=== PATIENT | female | born 1955 | race Caucasian/White ===

== ENCOUNTER 2022-10-27 09:38 | Day surgery (SDC) | payer MEDICARE, MEDICAID, SELFPAY ==
--- NOTE | 2022-10-20 15:24 | NURSING ---
DURING PAT PHONE INTERVIEW, PT INSTRUCTED TO PHONE KEISHA'S OFFICE TO INFORM THEM OF CONGESTION AND COUGH.
[2022-10-23 09:35] LABS: Hematocrit 44.3 % (37-47); Hemoglobin 14.3 g/dL (12.0-15.0); Mean Corp Hgb Conc 32.3 g/dL (32-36); Mean Corpuscular Hgb 30.4 pg (27.0-32.0); Mean Corpuscular Volume 94.3 fL (81-99); Mean Platelet Vol. 9.2 fl (6.2-12.0); Platelet Count 269 K/mm3 (150-450); RBC Distribution Width CV 13.6 % (11.6-14.6); RBC Distribution Width SD 47.5 fl (35.1-43.9); White Blood Count 5.3 K/mm3 (4.4-11.0)
[2022-10-23 10:08] LABS: Anion Gap 7 (5-15); BUN 11 mg/dL (7-18); BUN/Creat Ratio 14.2 RATIO (10-20); Calcium,Total 8.8 mg/dL (8.5-10.1); Chloride 109 mmol/L (98-107); Creatinine, Serum 0.78 mg/dL (0.55-1.02); EST Glomerular Filtration Rate 79 mL/min (>60); Est Glom Filt Rate - Afr Amer 95 mL/min (>60); Glucose 103 mg/dL (74-106); Potassium 4.1 mmol/L (3.5-5.1); Sodium Level 143 mmol/L (136-145)
--- NOTE | 2022-10-27 | HERN_PTH ---
PATIENT: SACHIN CODY LOC: [facility] [place] U#:[id number] AGE/SX: 67/F ROOM: RE10/27/[address]: Dr. Gaston Ellis MD : 1955 BED: DIS: 10/27/2022 SPEC #: [id number] RECD: 10/27/22 13:37 STATUS: IAN REAmanda #: [id number] MARICRUZ: 10/27/22 00:[address]: Gaston Ellis DEPT: SURGICAL PATHOLOGY RECD BY: Lorenzo Gar ENTERED: 10/30/22 09:34 SP TYPE: Hernia OTHR DR: Ginny Jackson, SANDRA Tissues: HERNIA Procedures: Surgery Specimen Level II HEADER OPERATION: Laparoscopic / hybrid ventral hernia with mesh PRE-OP DIAGNOSIS: Ventral incisional hernia TISSUE SUBMITTED: Hernia sac MICROSCOPIC DIAGNOSIS Hernia sac, herniorrhaphy: Hernia sac with fibrosis. AM:jonah 10/31/2022 MICROSCOPIC DESCRIPTION Slides are reviewed. GROSS DESCRIPTION Received in fixative is one container labeled with the patient's name and designated hernia sac. The specimen consists of an irregular piece of yellow adipose tissue measuring 7.5 x 4.0 x 2.5 cm. Sections do not reveal any mass lesion. Precision Dyer sections are submitted in one cassette. / SJ:rg 10/30/2022 TC:5 CPT: 66104
[2022-10-27 10:07] VITALS: BP 134/53; PULSE 82; RESP 18; TEMP 37.1; O2SAT 95; BMI 30.8
[2022-10-27] MEDS: Lactated Ringers 1,000 ML 15 ML IV (10:42)
--- NOTE | 2022-10-27 11:25 | HP.PCM_ITS ---
History and Physical Date of Admission: 10/27/22 Intake Vital Signs 10/06/2312:20 Height 5 ft 3 in Weight: 176 lb 6 oz BMI 31.2 BP 153/80 H Blood Pressure Location Lt brachial Position Sitting Respiration 17 Pulse 71 Pulse Source Monitor Temp 97.4 F L Temp Source Temporal Pulse Oximetry (%) 95 Oxygen Delivery Method room air Intake Visit Reasons: Hernia Chief Complaint: hernia Allergies aspirin Allergy (Intermediate, Verified 10/06/22 13:24) Otherciprofloxacin [From Cipro] Allergy (Intermediate, Verified 10/06/22 13:24) Hivescodeine Allergy (Intermediate, Verified 10/06/22 13:24) Othernaproxen Allergy (Intermediate, Verified 10/06/22 13:24) Rashsoy Allergy (Intermediate, Verified 10/06/22 13:24) Rash Medications NK 10/06/22 [History Confirmed 10/06/22] PFSH Medical History (Updated 10/06/22 @ 14:[address] Gaston Ellis MD) Amputation of finger, right Surgical History (Updated 10/06/22 @ 13:18 by Kristal Reina) History of hysterectomy Hx of cholecystectomy Social History (Updated 10/06/22 @ 13:19 by Kristal Reina) Smoking Status: Current every day smoker tobacco type: cigarettes Smoking packs per day: 1.5 Smoking cigarettes per day: 30.0 alcohol intake: never substance use type: does not use HPI HPI HPI: Patient is a 67-year-old female with abdominal hernia. She had a history of laparoscopic cholecystectomy. At her umbilical site she is experiencing bulging and pain. ROS General General: Yes fatigue; No weight change, appetite, colon cancer, breast cancer or weakness HEENT HEENT: No difficulty swallowing, eye injury, eye surgery, swollen glands or hoarseness Endo Endocrine: No thyroid disease, diabetes mellitus, thyroid cancer, Hair loss, heat intolerance or cold intolerance Skin Skin: Yes changing moles; No rash Musc Musculoskeletal: Yes back problems, arthritis and rheumatoid arthritis; No gout or joint pain Cardio Cardiovascular: Yes murmur; No pacemaker, heart disease, atrial fibrillation, high blood pressure, heart attack, heart stent, palpitations, shortness of breat with exertion or chest pain Psych Psychiatric: Yes depression and anxiety; No hearing voices Resp Respiratory: No shortness of breath, No sleep apnea, Yes cough, No COPD, Yes asthma, No emphysema and No wheezing Gastro Gastrointestinal: Yes abdominal pain, No nausea or vomiting, No diarrhea, No constipation, No blood in stool, Yes acid reflux, No hemorrhoids, No ulcers, No gallbladder problem and No black,tarry stools Herson Hematologic: No blood thinners, No blood disorders, No bleeding, No anemia and No blood clots Neuro Neurologic: No system reviewed and no additional complaints, except as documented, No as per HPI, No abnormal gait, No abnormal hearing, No abnormal movements, No abnormal speech, No behavioral changes, No burning sensations, No confusion, No convulsions, No disequilibrium, No dizziness, No localized weakness, No frequent falls, No headache(s), No lack of coordination, No loss of vision, No memory loss, Yes numbness, No other visual disturbances, No radicular pain, No restless legs, No sensory deficit, No syncope, Yes tingling, No tremor(s), No weakness and No other Exam Const General: cooperative Orientation: alert and oriented x3 HENMT Head: normal to inspection Neck Neck: normal visual inspection and full ROM Chest Chest palpation & inspection: normal inspection of the chest Resp Effort & Inspection: normal respiratory effort Auscultation: clear to auscultation bilaterally Cardio Rate: regular rate Rhythm: regular rhythm GI Inspection: non-distended Palpation: soft, hernia ventral and nontender Skin General: no rashes or lesions noted Neuro General: patient alert and patient oriented x3 Extrem General: full ROM Psych Appearance: grossly normal Mental Status: mental status grossly normal Assessment and Plan Assessment and Plan (1) Ventral incisional hernia: Status: Acute Plan: Patient has a reducible hernia at her umbilical incision site for her laparoscopic cholecystectomy. I discussed laparoscopic hybrid approach to the hernia. I discussed mesh placement. I discussed the risks including not limited to bleeding, infection, injury to underlying organs such as the bowel. Patient understands the risks and is willing to proceed. Gaston Ellis MD Pager: [facility] [address] [place] [address], [address] [place] [address] Office: I have examined the patient and the H&P has been reviewed. There are no clinical changes since date of exam.
[2022-10-27] MEDS: Cefazolin 2 GM in 0.9% Normal Saline (100mL Bag) 100 ML IV (11:37)
[2022-10-27] MEDS: 0.9% Normal Saline (Pres. free 10 ML Vial (12:05)
[2022-10-27] MEDS: BUPIVACAINE LIPOSOME/PF 20 ML VIAL OPERA.SITE (12:05)
--- NOTE | 2022-10-27 12:41 | PCM.OPRPT ---
Report of Operation Date of Procedure: 10/27/22 Pre-Operative Diagnosis: Incisional ventral hernia, less than 3 cm Post-Operative Diagnosis: Same Surgery/Procedure Performed:: Laparoscopic ventral hernia repair with mesh Type of Anesthesia: General/Regional Specimen's removed: Hernia sac and contents Estimated Blood Loss (mL): 10 Description of Procedure: Patient was brought back to the operating room and general anesthesia was induced. The abdomen was prepped and draped in usual sterile fashion. Visiport technique was used to access the left upper quadrant with a 5 mm port. The abdomen was then insufflated to 15 mmHg. The patient had densely adherent fat to the anterior abdominal wall and the hernia. Under laparoscopic guidance a tap block was performed bilaterally. Under direct visualization an epigastric 5 mm port was placed as well as a left lateral 5 mm port. Using Enseal the adherent omentum was taken down. This appeared to leave only a small amount of fat in the hernia. Next an incision was made over the hernia sac. Using electrocautery the hernia sac was dissected free from the anterior aspect. It was amputated and removed and its contents were removed as well. Next through this incision the Ventralight mesh was rolled and placed into the abdomen. Next the hernia was reapproximated using interrupted 0 Nurolon sutures. The abdomen was reinsufflated and the echo positioning device was used to position the mesh in place. The mesh was then tacked circumferentially to the anterior abdominal wall. The balloon was removed and intact. The abdomen was then allowed to desufflate. The incisions were injected with local anesthetic and closed with interrupted 4-0 Monocryl suture. Steri-Strips and bandages were applied. Patient tolerated the procedure well. She was taken to PACU in stable condition Grafts/Implants Used: [address] mesh
--- NOTE | 2022-10-27 12:48 | EX.PCM.DISCH ---
Discharge Instructions Procedure Hernia Diet Discharge Diet: Light diet - advance as tolerated Activity Discharge Activity: May Not Drive (for 2-3 days or while taking narcotic pain meds.) and May Shower (with the bandage in place 1-2 days after surgery.) Lifting Restrictions: 20 pounds for 6 weeks. Additional Activity Instructions:: Climbing stairs is fine, walking is encouraged. Sitting in bed may be uncomfortable. Sitting up using your lateral muscles (sitting up sideways) is usually more comfortable. Do not drive, work heavy equipment of sign legal documents for 24 hours. Pain medications may cause nausea, you should typically eat light foods as you take your pain medications. Pain medications may also cause constipation. If you have difficulty with this, discuss with your doctor. Dressing / Incision Call your doctor if your incision/area has: Continuous Slow Oozing, Sudden Increased Bleeding, Increased Pain/ Swelling, Increased Redness and Foul Smelling Discharge Call your doctor if you observe: Fever of 101 or Higher Suture Line Care: Avoid Pulling/Pushing and Avoid Pinching/Bending Remove Dressing in: 2 days (Remove clear bandages in 2 days, remove Steri-Strips in 7 to 10 days.) Follow Up Care Please Follow Up With: Gaston Ellis MD When: Please call to schedule 2 week follow up appointment. [phone] Test Results: Test results from this visit will be discussed in further detail at your follow-up appointment, if applicable. Discharge Plan Admission Attending Provider: Gaston Ellis Primary Care Provider: Ginny Jackson NP Discharge Orders/Prescriptions Prescriptions: New oxycodone 5 mg tablet 5 - 10 mg PO Q6H PRN (Reason: pain) 5 Days Qty: 20 0RF No Action omeprazole 20 mg capsule,delayed release(DR/EC) 20 mg PO Q6H PRN (Reason: acid reflux) Patient Comments: TAKE 1 CAPSULE BY MOUTH EVERY DAY acetaminophen 325 mg capsule 325 mg PO Q6H PRN (Reason: pain) Other Ambulatory Orders: 12 Lead EKG (Routine) Timeframe: 20221023 Facility: [facility] - Location: Cardiovascular Services Ordered By: Dr. Toro Bowers Disposition Disposition (needs filled in before D/C Order can be placed): Home, Self Care
[2022-10-27 12:49] VITALS: BP 134/53; BP 172/77; PULSE 94; RESP 16; TEMP 37.2; O2SAT 93
[2022-10-27 12:59] VITALS: BP 134/53; BP 152/81; PULSE 89; RESP 16; O2SAT 93
[2022-10-27 13:19] VITALS: BP 134/53; BP 157/71; PULSE 71; RESP 16; TEMP 36.3; O2SAT 93
[2022-10-27 13:42] VITALS: BP 134/53
== END 2022-10-27 13:52 | disposition home or self-care (01) ==
LOC: SDC 09:43 → AC 09:43
PROVIDERS: Anesthesiology; PCP Nurse Practitioner Family; Referring Provider Surgery; Visit Provider Surgery
PROC: 0WQF4ZZ Repair Abdominal Wall, Percutaneous Endoscopic Approach (ICD-10-PCS; CPT 49591; principal; 2022-10-27 11:10)
DX: K43.2 Incisional hernia without obstruction or gangrene (principal); F17.210 Nicotine dependence, cigarettes, uncomplicated; Z90.49 Acquired absence of other specified parts of digestive tract; Z90.710 Acquired absence of both cervix and uterus
CPT/HCPCS: 49591; 00750; 36415; 80048; 85027; 88302; 93005; J7120; C1760; J2405; J3490

== ENCOUNTER → 2024-01-24 | Outpatient (CLI) | payer MEDICARE, MEDICAID, SELFPAY ==
--- NOTE | 2024-01-24 10:34 | BD_ITS ---
STUDY: DUAL ENERGY X-RAY ABSORPTIOMETRY / DXA REASON FOR EXAM: Female, 68 years old. Pain TECHNIQUE: Bone Mineral Density (BMD) measurements of lumbar spine and bilateral hips were obtained. COMPARISON: None. FINDINGS: Lumbar Spine (L1-L4): g/cm2 (0.834) / T-score (-1.8) / Z-score (0.2) Findings are suggestive of osteopenia with a moderate fracture risk. Left Femur Total: g/cm2 (0.867) / T-score (-0.6) / Z-score (0.8) Left Femoral Neck: g/cm2 (0.657) / T-score (-1.7) / Z-score (0.0) Right Femur Total: g/cm2 (0.868) / T-score (-0.6) / Z-score (0.8) Right Femoral Neck: g/cm2 (0.693) / T-score (-1.4) / Z-score (0.3) BD/Dexa Bone Density Study IMPRESSION: The patient is considered osteopenic as outlined below according to World Uri Organization (WHO) criteria with a moderate fracture risk. Reference Information: The T-score is the number of standard deviations above or below the standard which is normal for young adults at their peak bone mineral density. The World Health Organization (WHO) interprets the T-scores as follows: Above -1 Normal bone density Between -1 and -2.5 Osteopenia Equal to / or below -2.5 Osteoporosis As a practical clinical guideline, osteopenia may be graded as follows: Mild -1 through -1.5 Moderate -1.6 through -2.0 Severe -2.1 through -2.4 The Z-score is the number of standard deviations above or below age-matched controls. A Z-score of less than -1.5 would be considered abnormal. References: 1. NIH Osteoporosis and Related Bone Diseases www osteo.org 2. International Society for Clinical Densitometry www iscd.org 3. National Osteoporosis Foundation www nof.org Electronically Signed: Marcos Davies MD at 15:02 EST ,
== END | disposition home or self-care (01) ==
LOC: OPBD 10:32
PROVIDERS: PCP Nurse Practitioner Family; Referring Provider Student in an Organized Health Care Education/Training Program; Visit Provider Student in an Organized Health Care Education/Training Program
DX: M81.0 Age-related osteoporosis without current pathological fracture (principal)
CPT/HCPCS: 77080

== ENCOUNTER → 2024-03-17 | Outpatient (CLI) | payer MEDICARE, MEDICAID, SELFPAY | END | disposition home or self-care (01) | LOC: MRI 13:24 | PROVIDERS: PCP Nurse Practitioner Family; Referring Provider Student in an Organized Health Care Education/Training Program; Visit Provider Student in an Organized Health Care Education/Training Program | DX: Z00.00 Encounter for general adult medical examination without abnormal findings (principal) ==

== ENCOUNTER → 2024-04-02 | Outpatient (CLI) | payer MEDICARE, MEDICAID, SELFPAY ==
--- NOTE | 2024-04-02 09:40 | RAD_ITS ---
PROCEDURE: THORACIC SPINE 3 VIEWS REASON FOR EXAM: Mid back pain. Thoracic spondylosis. TECHNIQUE: Three views of the thoracic spine were obtained. COMPARISON: None. FINDINGS: Normal vertebral heights. No evidence of fracture. Mild multilevel disc space narrowing. Normal alignment. No spondylolisthesis. Demineralization of the thoracic vertebrae. RAD/Thoracic Spine 3 Views IMPRESSION: Multilevel disc space narrowing and demineralization of the lumbar vertebrae. Reading Location: [facility]
== END | disposition home or self-care (01) ==
PROVIDERS: PCP Nurse Practitioner Family; Referring Provider Anesthesiology; Visit Provider Anesthesiology
DX: M47.814 Spondylosis without myelopathy or radiculopathy, thoracic region (principal)
CPT/HCPCS: 72072

== ENCOUNTER → 2024-10-21 | Outpatient (CLI) | payer MEDICARE, SELFPAY ==
--- NOTE | 2024-10-21 14:34 | RAD_ITS ---
PROCEDURE: KNEE 4 OR MORE VIEWS 10/21/2024 REASON FOR EXAM: SWELLING TECHNIQUE: Procedure Code: RADKN Modality: DX Procedure: KNEE 4 OR MORE VIEWS Laterality: Left knee COMPARISON: None FINDINGS: Bones: No fracture. No suspicious bone lesion. Joints: Mild degree of joint space narrowing of the medial compartment of the knee joint as well as the patellofemoral joint. Effusion: No effusion. Soft tissues: Diffuse soft tissue swelling. Other: RAD/Knee 4 or More Views IMPRESSION: Mild degenerative changes. Diffuse soft tissue swelling. Reading Location: [place] [id number]
--- NOTE | 2024-10-21 14:34 | RAD_ITS ---
PROCEDURE: KNEE 4 OR MORE VIEWS 10/21/2024 REASON FOR EXAM: SWELLING TECHNIQUE: Procedure Code: RADKN Modality: DX Procedure: KNEE 4 OR MORE VIEWS Laterality: Right knee COMPARISON: None FINDINGS: Bones: No fracture. No suspicious bone lesion. Joints: Mild degree of joint space narrowing of the medial compartment knee joint. Marked degree of joint space narrowing and degenerative changes at the patellofemoral joint. Effusion: No effusion. Soft tissues: Diffuse soft tissue swelling Other: RAD/Knee 4 or More Views IMPRESSION: Degenerative changes. Diffuse soft tissue swelling. Reading Location: [place] [id number]
== END | disposition home or self-care (01) ==
LOC: RAD 14:04
PROVIDERS: PCP Nurse Practitioner Family; Referring Provider Nurse Practitioner Family; Visit Provider Nurse Practitioner Family
DX: M25.461 Effusion, right knee (principal); M25.462 Effusion, left knee
CPT/HCPCS: 73564

== ENCOUNTER → 2024-11-26 | Outpatient (CLI) | payer MEDICARE, SELFPAY ==
--- NOTE | 2024-11-26 07:58 | VDLE_ITS ---
Reason For Study Reason For Study: R/O Lymphedema RIGHT LEFT GSV is normal. GSV is normal. CFV is compressible, spontaneous, phasic, competent CFV is compressible, spontaneous, phasic, competent, and demonstrates normal augmentation. and demonstrates normal augmentation. FV is compressible, spontaneous, phasic, competent FV is compressible, spontaneous, phasic, competent and demonstrates normal augmentation. and demonstrates normal augmentation. POP V is compressible, spontaneous, phasic, competent POP V is compressible, spontaneous, phasic, competent and demonstrates normal augmentation. and demonstrates normal augmentation. T/P Trunk is compressible. T/P Trunk is compressible. PTV is compressible. PTV is compressible. RT PerV is compressible. LT PerV is compressible. Procedure This is a venous duplex using B-mode, color flow and spectral Doppler. Exam performed in department. A preliminary report was called and/or faxed to Vy Palencia NP. VL/Venous Duplex US - Robert Extrem Interpretation Summary Deep veins of the bilateral lower extremities are patent and compressible segme ntally. There is no evidence of bilateral lower extremity deep vein thrombosis. The bilateral great saphenous veins appea r patent and compressible segmentally Ordering Physician: Vy Palencia Referring Physician: Vy Palencia Performed By: Vy Wilcox RVT
--- NOTE | 2024-11-26 08:00 | US_ITS ---
EXAM: US Abdomen Complete CLINICAL INDICATION: BLOATING TECHNIQUE: Real-time ultrasound of the abdomen with image documentation. COMPARISON: No relevant prior studies available. FINDINGS: LIVER: Liver measures up to 19.7 cm. No intrahepatic bile duct dilation. GALLBLADDER: Gallbladder is surgically absent. COMMON BILE DUCT: Common bile duct is prominent measuring 0.75 cm in diameter. No common bile duct stone is seen. PANCREAS: Unremarkable as visualized. KIDNEYS: Unremarkable. No stones. No hydronephrosis. The right kidney measures 9.5 x 4.4 x 3.8 cm. The left kidney measures 10.3 x 4.6 x 4.5 cm. SPLEEN: Unremarkable. The spleen measures 9.7 cm in maximum dimension. AORTA: Unremarkable. No aneurysm. INFERIOR VENA CAVA: Unremarkable. US/Abdomen Complete IMPRESSION: 1. Hepatomegaly. 2. Common bile duct is prominent measuring 0.75 cm in diameter. No common amparo e duct stone is seen. This may be normal postoperative changes from cholecystectomy. Reading Location: [facility]
--- NOTE | 2024-11-26 08:00 | US_ITS ---
EXAM: US Abdomen Complete CLINICAL INDICATION: BLOATING TECHNIQUE: Real-time ultrasound of the abdomen with image documentation. COMPARISON: No relevant prior studies available. FINDINGS: LIVER: Liver measures up to 19.7 cm. No intrahepatic bile duct dilation. GALLBLADDER: Gallbladder is surgically absent. COMMON BILE DUCT: Common bile duct is prominent measuring 0.75 cm in diameter. No common bile duct stone is seen. PANCREAS: Unremarkable as visualized. KIDNEYS: Unremarkable. No stones. No hydronephrosis. The right kidney measures 9.5 x 4.4 x 3.8 cm. The left kidney measures 10.3 x 4.6 x 4.5 cm. SPLEEN: Unremarkable. The spleen measures 9.7 cm in maximum dimension. AORTA: Unremarkable. No aneurysm. INFERIOR VENA CAVA: Unremarkable. US/Abdomen Complete IMPRESSION: 1. Hepatomegaly. 2. Common bile duct is prominent measuring 0.75 cm in diameter. No common amparo e duct stone is seen. This may be normal postoperative changes from cholecystectomy. Reading Location: [facility]
--- OUTSIDE RECORDS SUMMARY | 2024-11-26 08:17 | XMS RPT_ITS | CCD ---
Author Organization [facility] Care Team Providers Care Blast Hole Driller Name Role Phone Jeanette Sandoval Primary Care Provider AXEL FALL CHRISTEL Attending Unavailab le STADNICK, AXEL CHRISTEL Referring Unavailab le JEANETTE SANDOVAL Primary Care Unavailable STADNICK, AXEL CHRISTEL Attending Unavailab le STADNICK, AXEL CHRISTEL Referring Unavailab le MAGGIEJEANETTE SOSA Primary Care Unavailable STADNICK, AXEL CHRISTEL Admitting Unavailab le STADNICK, AXEL CHRISTEL Referring Unavailab le JEANETTE SANDOVAL Primary Care Unavailable JOE, JEANETTE Admitting Unavailable STADNICK, AXEL CHRISTEL Attending Unavailab le JOEJEANETTE Referring Unavailable JOE, JEANETTE Primary Care Unavailable STADNICK, AXEL CHRISTEL Attending Unavailab le JOE, JEANETTE Primary Care Unavailable STADNICK, AXEL CHRISTEL Attending Unavailab le JOE, JEANETTE Primary Care Unavailable STADNICK, AXEL CHRISTEL Attending Unavailab le JOE, JEANETTE Primary Care Unavailable Jeanette Sandoval Primary Care Provider Jeanette Sandoval Unavailable Kezia Gonzalez Unavailable Unavailable TOMASZ FERNANDEZ Attending Unavailable TOMASZ FERNANDEZ Primary Care Unavailable TOMASZ FERNANDEZ Admitting Unavailable JEANETTE SANDOVAL WOOD PATTERN MAKER Consulting Unavailable PROVIDER, UNKNOWN Consulting Unavailable PROVIDER, UNKNOWN Consulting Unavailable JEANETTE SANDOVAL WOOD PATTERN MAKER Consulting Unavailable GINNY VENEGAS Attending Unavailable GINNY VENEGAS Primary Care Unavailable GINNY VENEGAS Admitting Unavailable PROVIDER, UNKNOWN Consulting Unavailable PROVIDER, UNKNOWN Consulting Unavailable Manuel TECHNICAL IMPLEMENTATION LEAD-C, Ginny Primary Care Provider [phone] Tomasz Bruce Attending Provider Tomasz Bruce Referring Provider [phone] Manuel TECHNICAL IMPLEMENTATION LEAD-C, Ginny Referring Provider Vasiliy SORENSON, Dr. Hernandez Attending Provider Musa SORENSON, Dr. Corrigan Attending Provider [phone] Dr. Shekhar Vigil MD Referring Provider Manuel TECHNICAL IMPLEMENTATION LEAD-C, Ginny Primary Care Physician [phone] Talha TECHNICAL IMPLEMENTATION LEAD-C, Vy Amor Attending Physician Talha TECHNICAL IMPLEMENTATION LEAD-C, Vy Amor Referring Provider [phone] Manuel TECHNICAL IMPLEMENTATION LEAD, Ginny Primary Care Unavailable Manuel TECHNICAL IMPLEMENTATION LEAD, Ginny Referring Unavailable Gaston Ellis Attending Unavailable Manuel TECHNICAL IMPLEMENTATION LEAD, Ginny Primary Care Unavailable Manuel TECHNICAL IMPLEMENTATION LEAD, Ginny Referring Unavailable Karthik Tomasz Attending Unavailable Manuel TECHNICAL IMPLEMENTATION LEAD, Ginny Primary Care Unavailable David Amanda Attending Unavailable Manuel TECHNICAL IMPLEMENTATION LEAD, Ginny Referring Unavailable Manuel TECHNICAL IMPLEMENTATION LEAD, Ginny Primary Care Unavailable Karthik Tomasz Attending Unavailable David Amanda Attending Unavailable Manuel TECHNICAL IMPLEMENTATION LEAD, Ginny Primary Care Unavailable Vy Palencia Attending Unavailabl Vy Morrissey Referring Unavailabl e Manuel TECHNICAL IMPLEMENTATION LEAD, Ginny Primary Care Unavailable Manuel TECHNICAL IMPLEMENTATION LEAD, Ginny Primary Care Unavailable Karthik, Tomasz Attending Unavailable Karthik, Tomasz Referring Unavailable Vy Palencia Referring Unavailjeff Venegas TECHNICAL IMPLEMENTATION LEAD, Ginny Primary Care Unavailable Vy Palencia Attending Unavailabl e Manuel TECHNICAL IMPLEMENTATION LEAD, Ginny Primary Care Unavailable Karthik, Tomasz Attending Unavailable Karthik, Tomasz Referring Unavailable Shekhar Vigil Referring Unavailable Manuel TECHNICAL IMPLEMENTATION LEAD, Ginny Primary Care Unavailable Shekhar Vigil Attending Unavailable Allergies Allergy Classification Reported Allergen(s) Allergy Type Date of Onset Reaction(s) Facility (11 sources) Aspirin; Translations: [Unknown] Drug Allergy 9 Rash, Other [facility] Comment on above: racing heart (9 sources) Codeine Drug Allergy 9 Arrhythmia, Other [facility] Comment on above: hallucinations, not feel well (10 sources) Latex; Translations: [LATEX] Propensity to adverse reactions to drug 9 HIVE [facility] (7 sources) Naproxen Drug Allergy 9 Rash [facility] (5 sources) NSAIDs Propensity to adverse reactions to drug 9 [facility] (4 sources) Ibuprofen Drug Allergy 5 Rash, Hives [facility] (1 source) Aspirin Drug Allergy [facility] (1 source) Codeine Drug Allergy [facility] (1 source) Naproxen Drug Allergy [facility] (1 source) NSAID Drug allergy (disorder) [facility] (2 sources) Ciprofloxacin Drug Allergy 5 [facility] (3 sources) Soy protein; Translations: [soy] Allergy to substance 5 [facility] (1 source) Aspirin Drug Allergy 5 [facility] (1 source) Ciprofloxacin Drug Allergy 5 [facility] (1 source) Codeine Drug Allergy 5 [facility] (1 source) Ibuprofen Drug Allergy 5 [facility] (1 source) Latex Drug allergy (disorder) 5 [facility] (1 source) Naproxen Drug Allergy 5 [facility] Medications Current Medications Medication Drug Class(es) Dates Sig (Normalized) Sig (Original) [id number] 200 actuat albuterol 0.09 mg/actuat metered dose inhaler (6 sources) beta2-Adrenergic Agonist Start: 12-04-2023 Start: 03-28-2018 albuterol 90 m cg/actuation inhaler Inhale as needed . 0 03/28/2018 Active Start: 03-28-2018 albuterol 90 m cg/actuation inhaler Inhale as needed . 0 03/28/2018 Active albuterol 90 mcg/actuation inhaler (1 source) Start: 03-28-2018 albuterol 90 mcg/actuation inhaler Inhale as needed . 0 03/28/2018 Active amoxicillin 875 mg / clavulanate 125 mg oral tablet (1 source) Penicillin-class Antibacterial Start: 03-18-2021 End: 03-27-2021 take 1 tablet by mouth twice daily at mealtime amoxicillin-clavul anate 875 mg-125 mg oral tablet ; 1 tab(s) orally 2 times a day x 10 days Quantity: 20 Refills: 0 Ordered: 18-Mar-2021 Kezia Gonzalez Start: 18-Mar-2021 End: 27-Mar-2021 Generic Substitution Allowed Comments: Finish all this medication unless otherwise directed by prescriber.Take with food or milk. Comment on above: Finish all this medi cation unless otherwise directed by prescriber.Take with food or milk. ciprofloxacin 3 mg/ml / dexamethasone 1 mg/ml otic suspension (1 source) Corticosteroid, Quinolone Antimicrobial Start: 03-18-2021 End: 03-27-2021 Ciprodex 0.3%-0.1% otic suspension ; 4 drop(s) in each affected ear 2 times a day x 10 days Quantity: 1 Refills: 0 Ordered: 18-Mar-2021 Kezia Gonzalez Start: 18-Mar-2021 End: 27-Mar-2021 Generic Substitution Allowed Comments: For the ear.Shake well before use. Comment on above: For the ear.Shake we ll before use. LORazepam 1 mg oral tablet (2 sources) Benzodiazepine Start: 03-14-2024 take 1 tablet by mouth every hour methocarbamol 500 mg oral tablet (2 sources) Muscle Relaxant Start: 02-15-2024 take 1 tablet by mouth three times daily as needed for pain triamcinolone acetonide 0.25 mg/ml topical cream (5 sources) Corticosteroid Start: 05-01-2018 triamcinolone (KENALOG) 0.025 % cream Apply topically as needed . 0 05/01/2018 Active Completed/Discontinued Medications Medication Drug Class(es) Dates Sig (Normalized) Sig (Original) acetaminophen 325 mg oral capsule (2 sources) Start: 10-20-2022 End: 12-04-2023 take 1 capsule by mouth every six hours as needed for pain Acetaminophen 325 mg capsule Discontinued 325 mg PO EVERY 6 HOURS as needed for pain October 20, 2022 12:00am December 04, 2023 9:34am amoxicillin 875 mg oral tablet (2 sources) Penicillin-class Antibacterial Start: 02-18-2021 End: 02-27-2021 take 1 tablet by mouth twice daily amoxicillin 875 mg oral tablet ; 1 tab(s) orally 2 times a day x 10 days Quantity: 20 Refills: 0 Ordered: 18-Feb-2021 Kezia Gonzalez Start: 18-Feb-2021 End: 27-Feb-2021 Status: Other Generic Substitution Allowed Comments: Finish all this medication unless otherwise directed by prescriber. Comment on above: Finish all this medi cation unless otherwise directed by prescriber. cholecalciferol 0.025 mg oral capsule (2 sources) Vitamin D Start: 12-17-2023 End: 01-16-2024 take 1 capsule by mouth once daily Cholecalciferol (Vitamin D3) 25 mcg (1,000 unit) capsule Discontinued 25 ug PO daily 30 30 0 December 17, 2023 1:00am January 15, 2024 1:00am January 16, 2024 1:09am ofloxacin 3 mg/ml otic solution (2 sources) Quinolone Antimicrobial Start: 02-18-2021 End: 02-24-2021 ofloxacin 0.3% otic solution ; 10 drop(s) in affected ear once a day x 7 days Quantity: 1 Refills: 0 Ordered: 18-Feb-2021 Kezia Gonzalez Start: 18-Feb-2021 End: 24-Feb-2021 Status: Other Generic Substitution Allowed Comments: For the ear. Comment on above: For the ear. omeprazole 20 mg delayed release oral capsule (7 sources) Proton Pump Inhibitor Start: 10-20-2022 End: 12-17-2023 take 1 capsule by mouth every six hours as needed Omeprazole 20 mg capsule,delayed release(DR/EC) Discontinued 20 mg PO EVERY 6 HOURS as needed for acid reflux October 20, 2022 12:00am December 17, 2023 9:50am Start: 03-28-2018 omeprazole (NC ILOSEC) 20 MG capsule Take 20 mg by mouth as needed . 0 03/28/2018 Active oxyCODONE hydrochloride 5 mg oral tablet (2 sources) Opioid Agonist Start: 10-27-2022 End: 12-04-2023 take 5-10 mg by mouth every six hours as needed for pain Oxycodone 5 mg tablet Discontinued 5 - 10 mg PO EVERY 6 HOURS as needed for pain 20 5 0 October 27, 2022 December 04, 2023 9:34am Ventral incisional hernia Incisional hernia without obstruction or gangrene Problems Active Problems Problem Classification Problem Date Documented Da te Episodic/Chronic Abdominal hernia (4 sources) Umbilical hernia; Translations: [Umbilical hernia without obstruction or gangrene] 10-06-2022 Episodic Asthma (2 sources) Asthma; Translations: [Unspecified asthma, uncomplicated] 10-06-2022 Chronic Esophageal disorders (2 sources) Gastroesophageal reflux disease; Translations: [Gastro-esophageal reflux disease without esophagitis] 10-06-2022 Chronic Heart valve disorders (2 sources) Heart murmur; Translations: [Cardiac murmur, unspecified] 10-06-2022 Episodic Immunizations and screening for infectious disease (3 sources) Raised antinuclear antibody; Translations: [Contact with and (suspected) exposure to other viral communicable diseases] 10-23-2022 Episodic Osteoarthritis (2 sources) Arthritis; Translations: [Unspecified osteoarthritis, unspecified site] 10-06-2022 Chronic Osteoporosis (1 source) Age-related osteoporosis without current pathological fracture; Translations: [Age-related osteoporosis without current pathological fracture] Onset: Chronic Other and unspecified benign neoplasm (2 sources) Lipoma (clinical); Translations: [Benign lipomatous neoplasm, unspecified] 12-04-2023 Episodic Other bone disease and musculoskeletal deformities (1 source) Other specified disorders of bone density and structure, multiple sites; Translations: [Other specified disorders of bone density and structure, multiple sites] Onset: Episodic Other bone disease and musculoskeletal deformities (2 sources) Bone density below reference range; Translations: [Disorder of bone density and structure, unspecified] 12-17-2023 Episodic Other bone disease and musculoskeletal deformities (3 sources) Osteopenia; Translations: [Other specified disorders of bone density and structure, unspecified site] 02-15-2024 Episodic Other ear and sense organ disorders (1 source) Acute otitis externa; Translations: [Infective otitis externa, unspecified] 02-18-2021 Chronic Other gastrointestinal disorders (1 source) Abdominal distension (gaseous); Translations: [Abdominal distension (gaseous)] Onset: Episodic Other non-traumatic joint disorders (1 source) Effusion, right knee; Translations: [Effusion, right knee] Onset: Episodic Other screening for suspected conditions (not mental disorders or infectious disease) (3 sources) Encounter for screening for diseases of the blood and blood-forming organs and certain disorders involving the immune mechanism; Translations: [Encounter for screening for other metabolic disorders] Onset: 03-06-202 5 Episodic Otitis media and related conditions (2 sources) Acute otitis media; Translations: [Unspecified otitis media] 02-18-2021 Episodic Residual codes; unclassified (3 sources) Pain; Translations: [Pain] Episodic Residual codes; unclassified (1 source) Localized edema; Translations: [Localized edema] Onset: Episodic Rheumatoid arthritis and related disease (1 source) Rheumatoid arthritis of multiple joints; Translations: [Rheumatoid arthritis of multiple sites with negative rheumatoid factor (HCC)] Chronic Spondylosis; intervertebral disc disorders; other back problems (4 sources) Degeneration of lumbar intervertebral disc; Translations: [Degeneration of intervertebral disc of lumbar region] Onset: 5 12-17-2023 Chronic Unclassified (2 sources) EARACHES 02-18-2021 Comment on above: EARACHES Unclassified (1 source) Acute otitis externa of left ear 02-18-2021 Unclassified (2 sources) EARACHE 03-18-2021 Comment on above: EARACHE Unclassified (2 sources) Encounter to establish care; Translations: [Z76.89 - Persons encountering health services in other specified circumstances] Past or Other Problems Problem Classification Problem Date Documented Date Episodic/Chronic Residual codes; unclassified (1 source) Other specified postprocedural states; Translations: [Other specified postprocedural states] Onset: 02-15-2024 Episodic Spondylosis; intervertebral disc disorders; other back problems (14 sources) Spinal stenosis, lumbar region without neurogenic claudication; Translations: [Lumbar radiculopathy] Onset: 12-17-2023 Episodic Results Test Name Value Interpretation Reference Range Facility Knee 4 or More Viewson 10-21 Knee 4 or More Views [facility] Imaging Services [address] [place] [address] Knee 4 or More Views MR#: [id number] Acct: [id number] Name: KORIN MCKENNA Rep #: [id number] : 1955 F 69 From: Marcos arreola MD PCP: SANDRA Temple Status: REG CLI Study: Knee 4 or More Views Date of Exam: 10/21/24 Exam# [id number] Ordering Dr: Vy Palencia TECHNICAL IMPLEMENTATION LEAD-C PROCEDURE: KNEE 4 OR MORE VIEWS 10/21/2024 REASON FOR EXAM: SWELLING TECHNIQUE: Procedure Code: RADKN Modality: DX Procedure: KNEE 4 OR MORE VIEWS Laterality: Left knee COMPARISON: None FINDINGS: Bones: No fracture. No suspicious bone lesion. Joints: Mild degree of joint space narrowing of the medial compartment of the knee joint as well as the patellofemoral joint. Effusion: No effusion. Soft tissues: Diffuse soft tissue swelling. Other: RAD/Knee 4 or More Views IMPRESSION: Mild degenerative changes. Diffuse soft tissue swelling. Reading Location: [facility] CC: SANDRA Venegas; SANDRA Palencia Newspaper Delivery Driver: Signed Normal [facility] Knee 4 or More Views [facility] Imaging Services [address] [place] [address] Knee 4 or More Views MR#: [id number] Acct: [id number] Name: KORIN MCKENNA Rep #: [id number] : 1955 F 69 From: Marcos arreola MD PCP: SANDRA Temple Status: REG CLI Study: Knee 4 or More Views Date of Exam: 10/21/24 Exam# [id number] Ordering Dr: Vy Palencia PROCEDURE: KNEE 4 OR MORE VIEWS 10/21/2024 REASON FOR EXAM: SWELLING TECHNIQUE: Procedure Code: RADKN Modality: DX Procedure: KNEE 4 OR MORE VIEWS Laterality: Right knee COMPARISON: None FINDINGS: Bones: No fracture. No suspicious bone lesion. Joints: Mild degree of joint space narrowing of the medial compartment knee joint. Marked degree of joint space narrowing and degenerative changes at the patellofemoral joint. Effusion: No effusion. Soft tissues: Diffuse soft tissue swelling Other: RAD/Knee 4 or More Views IMPRESSION: Degenerative changes. Diffuse soft tissue swelling. Reading Location: [facility] CC: SANDRA Venegas; SANDRA Palencia Newspaper Delivery Driver: Signed Normal [facility] CBC + DIFFon 04-10-2024 Baso # 0.02 x10EE3/UL Normal 0.00 - 0.10 [facility] Comment on above: Performed By: #### 2 [id number] #### [facility],[address] [place] [address] 93890 Basophils/100 WBC (Bld) 0.3 % Normal 0.0 - 2.0 [facility] Comment on above: Performed By: #### 2 83080 #### [facility],[address] [place] [address] CBC + DIFF Normal [facility] Comment on above: Result Comment: CBC- COMPLETE BLOOD COUNT Performed By: #### 2 83526 #### [facility],[address] [place] [address] EO # 0.11 x10EE3/UL Normal 0.00 - 0.50 [facility] Comment on above: Performed By: #### 2 46776 #### [facility],[address] [place] [address] 87170 Eosinophils/100 WBC (Bld) 2.1 % Normal 0.0 - 7.0 [facility] Comment on above: Performed By: #### 2 45965 #### [facility],[address] [place], [place] [id number] Erythrocyte distribution width (RBC) [Ratio] 13.6 % Normal 12.0 - 15.6 [facility] Comment on above: Performed By: #### 2 90577 #### [facility],[address] [place] [address] Hematocrit (Bld) [Volume fraction] 42.6 % Normal 34.0 - 46.0 [facility] Comment on above: Performed By: #### 2 51010 #### [facility],[address] [place] [address] 06984 Hemoglobin (Bld) [Mass/Vol] 14.7 g/dL Normal 12.0 - 16.0 [facility] Comment on above: Performed By: #### 2 02834 #### [facility],[address] [place] [address] 01086 Lymph # 1.76 x10EE3/UL Normal 0.80 - 2.80 [facility] Comment on above: Performed By: #### 2 09023 #### [facility],[address] [place] [address] 71161 Lymphocytes/100 WBC (Bld) 34.2 % Normal 20.0 - 45.0 [facility] Comment on above: Performed By: #### 2 16170 #### [facility],[address] [place] [address] 85713 MANUAL DIFF N/A Normal [facility] Comment on above: Performed By: #### 2 71960 #### [facility],[address] [place] [address] MCH (RBC) [Entitic mass] 31 pg Normal 27 - 33 [facility] Comment on above: Performed By: #### 2 08867 #### [facility],[address] [place] [address] MCHC 35 X10 3 Normal 32 - 36 [facility] Comment on above: Performed By: #### 2 18109 #### [facility],[address] [place], [place] [id number] MCV (RBC) [Entitic vol] 89 fL Normal 80 - 99 [facility] Comment on above: Performed By: #### 2 86813 #### [facility],[address] [place] [address]1973 Mcleod # 0.38 x10EE3/UL Normal 0.20 - 1.00 [facility] Comment on above: Performed By: #### 2 10556 #### [facility],[address] [place] [address] 56991 MONOS % 7.3 % Normal 0.0 - 10.0 [facility] Comment on above: Performed By: #### 2 21182 #### [facility],[address] [place] [address] 51831 Morphology Jadon (Bld) [Interp] N/A Normal [facility] Comment on above: Performed By: #### 2 36419 #### [facility],[address] [place] [address] 39614 Neut # 2.89 x10EE3/UL Normal 1.50 - 7.10 [facility] Comment on above: Performed By: #### 2 81955 #### [facility],[address] [place] [address] 41123 Neutrophils/100 WBC (Bld) 56.1 % Normal 46.0 - 76.0 [facility] Comment on above: Performed By: #### 2 83002 #### [facility],[address] [place] [address] 98624 PLATELET 315 x10EE3/UL Normal 150 - 450 [facility] Comment on above: Performed By: #### 2 51290 #### [facility],[address] [place] [address] 04317 Platelet mean volume (Bld) [Entitic vol] 7.4 fL Normal 6.6 - 10.5 [facility] Comment on above: Result Comment: AUTO MATED DIFFERENTIAL Performed By: #### 2 16011 #### [facility],[address] [place] [address] 32247 RBC 4.77 x 10EE6/UL Normal 4.10 - 5.30 [facility] Comment on above: Performed By: #### 2 45845 #### [facility],[address] [place] [address] 34251 WBC 5.2 x 10EE3/UL Normal 4.5 - 10.8 [facility] Comment on above: Performed By: #### 2 63762 #### [facility],[address] [place] [address] 14897 CMP with eGFRon 04-10-2024 AGE 68 years Normal [facility] Comment on above: Performed By: #### 2 98334 #### [facility],[address] [place] [address] 88320 Albumin [Mass/Vol] 3.6 g/dL Normal 3.4 - 5.0 [facility] Comment on above: Performed By: #### 2 57759 #### [facility],[address] [place] [address] 22221 Albumin/Globulin [Mass ratio] 1.2 {ratio} Normal 0.9 - 1.6 [facility] Comment on above: Performed By: #### 2 73271 #### [facility],[address] [place] [address] 98192 ALK PHOS 73 U/L Normal 46 - 116 [facility] Comment on above: Performed By: #### 2 30093 #### [facility],[address] [place] [address] 44403 ALT [Catalytic activity/Vol] 23 U/L Normal 16 - 63 [facility] Comment on above: Performed By: #### 2 72332 #### [facility],[address] [place] [address] 70786 Anion gap [Moles/Vol] 10 mmol/L Normal 10 - 20 [facility] Comment on above: Performed By: #### 2 93006 #### [facility],[address] [place] [address] 63148 AST [Catalytic activity/Vol] 14 U/L Normal 13 - 39 [facility] Comment on above: Performed By: #### 2 82048 #### [facility],[address] [place] [address] 80155 B/C RATIO 22 ratio Normal 0 - 30 [facility] Comment on above: Performed By: #### 2 47197 #### [facility],[address] [place] [address] 63651 Bilirubin [Mass/Vol] 0.3 mg/dL Normal 0.2 - 1.0 [facility] Comment on above: Performed By: #### 2 61141 #### [facility],[address] [place] [address] 02239 Calcium [Mass/Vol] 9.1 mg/dL Normal 8.5 - 10.1 [facility] Comment on above: Performed By: #### 2 88671 #### [facility],[address] [place] [address] 32796 Chloride [Moles/Vol] 105 mmol/L Normal 98 - 107 [facility] Comment on above: Performed By: #### 2 37271 #### [facility],[address] [place] [address] 42893 CMP with eGFR Normal [facility] Comment on above: Result Comment: COMP REHENSIVE METABOLIC PANEL Performed By: #### 2 83037 #### [facility],[address] [place] [address] 68091 CO2 [Moles/Vol] 31.0 mmol/L Normal 21.0 - 32.0 [facility] Comment on above: Performed By: #### 2 71146 #### [facility],[address] [place] [address] 45236 Creatinine [Mass/Vol] 0.78 mg/dL Normal 0.55 - 1.02 [facility] Comment on above: Performed By: #### 2 [id number] #### [facility],[address] [place] [address] 41696 GFR/1.73 sq M.predicted among non-blacks MDRD (S/P/Bld) [Vol rate/Area] mL/min/{1.73_m2} Normal 60 - 999 [facility] Comment on above: Performed By: #### 2 [id number] #### [facility],[address] [place] [address] 51751 Result Comment: ACCO RDING TO THE NATIONAL KIDNEY DISEASE EDUCATION PROGRAM(NKDE), A NORMAL eGFR IS A VALUE GREATER THAN OR EQUAL TO 60 ML/MIN/1.73 SQ METERS. CHRONIC KIDNEY DISEASE: <60mL/MIN/1.73 SQ METERS KIDNEY FAILURE: <15mL/MIN/1.73 SQ METERS THIS TEST SHOULD ONLY BE USED FOR PATIENTS 18 YEARS OF AGE AND OLDER. Globulin (S) [Mass/Vol] 2.9 g/dL Normal 1.5 - 3.8 [facility] Comment on above: Performed By: #### 2 [id number] #### [facility],[address] [place] [address] 33557 Glucose [Mass/Vol] 93 mg/dL Normal 74 - 106 [facility] Comment on above: Performed By: #### 2 [id number] #### [facility],[address] [place] [address] 52733 Potassium [Moles/Vol] 4.2 mmol/L Normal 3.5 - 5.1 [facility] Comment on above: Performed By: #### 2 [id number] #### [facility],[address] [place] [address] 61878 Protein [Mass/Vol] 6.5 g/dL Normal 6.4 - 8.2 [facility] Comment on above: Performed By: #### 2 46775 #### [facility],[address] [place] [address] 98844 Sodium [Moles/Vol] 142 mmol/L Normal 136 - 145 [facility] Comment on above: Performed By: #### 2 72615 #### [facility],[address] [place] [address] 54985 Urea nitrogen [Mass/Vol] 17 mg/dL Normal 7 - 18 [facility] Comment on above: Performed By: #### 2 [id number] #### [facility],[address] [place] [address] 09536 LIPID PROFILEon 04-10-2024 Cholesterol [Mass/Vol] 217 mg/dL Normal 0 - 240 [facility] Comment on above: Performed By: #### 2 71333 #### [facility],[address] [place] [address] 42745 Cholesterol in HDL [Mass/Vol] 49 mg/dL Normal 40 - 60 [facility] Comment on above: Performed By: #### 2 43090 #### [facility],[address] [place] [address] 16097 Cholesterol in LDL [Mass/Vol] 149 mg/dL High 0 - 129 [facility] Comment on above: Performed By: #### 2 49426 #### [facility],[address] [place] [address] 09699 Cholesterol.total /Cholesterol in HDL [Mass ratio] 4.4 {ratio} Normal 0.0 - 5.0 [facility] Comment on above: Performed By: #### 2 70831 #### [facility],[address] [place] [address] 12287 Lipid 1996 panel Normal [facility] Comment on above: Result Comment: LIPI D PROFILE Performed By: #### 2 53379 #### [facility],[address] [place] [address] 62362 Triglyceride [Mass/Vol] 95 mg/dL Normal 0 - 150 [facility] Comment on above: Performed By: #### 2 03635 #### [facility],[address] [place] [address] 51672 VITAMIN D, 25 HYDROXYon 03-0 VitD 12.10 ng/mL Low 30.00 - 100 [facility] Comment on above: Result Comment: 25-O HD3 indicates both endogenous production and supplementation. 25-OHD2 is an indicator of exogenous sources, such as diet or supplementation. Therapy is based on measurement of Total 25-OHD, with levels <20 ng/mL indicative of Vitamin D deficiency, while levels between 20 ng/mL and 30 ng/mL suggest insufficiency. Optimal levels are >=30ng/mL. Vitamin D, 25-OH D3 Not Established Vitamin D, 25-OH D2 Not Established Performed By: #### 2 [id number] #### [facility],[address] [place] [address] 71599 Thoracic Spine 3 Viewson Thoracic Spine 3 Views [facility] Imaging Services [address] [place] [address] Thoracic Spine 3 Views MR#: [id number] Acct: [id number] Name: KORIN MCKENNA Rep #: [id number] : 1955 F 68 From: Marcos arreola MD PCP: SANDRA Temple Status: REG CLI Study: Thoracic Spine 3 Views Date of Exam: 04/02/24 Exam# [id number] Ordering Dr: Shekhar Vigil MD PROCEDURE: THORACIC SPINE 3 VIEWS REASON FOR EXAM: Mid back pain. Thoracic spondylosis. TECHNIQUE: Three views of the thoracic spine were obtained. COMPARISON: None. FINDINGS: Normal vertebral heights. No evidence of fracture. Mild multilevel disc space narrowing. Normal alignment. No spondylolisthesis. Demineralization of the thoracic vertebrae. RAD/Thoracic Spine 3 Views IMPRESSION: Multilevel disc space narrowing and demineralization of the lumbar vertebrae. Reading Location: [facility] CC: TECHNICAL IMPLEMENTATION LEAD-C Ginny Venegas; Dr. Shekhar Vigil MD Newspaper Delivery Driver: Signed Normal [facility] Orthopedic Visit Reporton Orthopedic Visit Report [facility] [address] [place] [address] OFFICE VISIT Date of Service: 02/15/24 MR#: [id number] Acct: [id number] Name: KORIN MCKENNA Rep #: [id number] : 1955 Provider: BRIANNA Romero Age/Sex: 68/F Location[place] [facility] [place] Status: Signed Intake Vital Signs 12/17/23 08:49 Height 5 ft 3 in Weight: 176 lb 6 oz BMI 31.2 Intake Visit Reasons: LUMBAR SPINE Allergies aspirin Allergy (Intermediate, Verified 02/15/24 09:18) Other ciprofloxacin (From Cipro) Allergy (Intermediate, Verified 02/15/24 09:18) Hives codeine Allergy (Intermediate, Verified 02/15/24 09:18) Other latex Allergy (Intermediate, Verified 02/15/24 09:18) HIVE naproxen Allergy (Intermediate, Verified 02/15/24 09:18) Rash soy Allergy (Intermediate, Verified 02/15/24 09:18) Rash ibuprofen Allergy (Verified 02/15/24 09:18) Hives Medications ???Medication ???Instructions ???Recorded ???Confirmed ???Type albuterol sulfate 90 mcg/actuation inhalation 12/04/23 02/15/24 History aerosol inhaler methocarbamol 500 mg tablet 500 mg PO TID PRN pain/spasms #30 02/15/24 02/15/24 Rx tabs Have you fallen in the past year?: No PFSH Medical History Lipoma Back pain Contact with and (suspected) exposure to other viral communicable diseases Post-menopausal Wears dentures Depression Anxiety Ambulates with cane Restless legs TIA (transient ischemic attack) Inflammatory arthritis History of hiatal hernia History of IBS Gastric reflux Chronic cough Leg cramps History of edema History of stress test History of irregular heartbeat Smoker Amputation of finger, right Surgical History History of appendectomy History of esophagogastroduodenoscopy (EGD) History of colonoscopy History of surgery on arm History of History of hysterectomy Hx of cholecystectomy Family History Father Hypertension Diabetes CVA (cerebral vascular accident) Colon cancer Mother Hypertension Uterine cancer Thyroid goiter Social History Smoking Status: Current every day smoker tobacco type: cigarettes alcohol intake: never substance use type: does not use HPI LUMBAR SPINE Details: This documentation accurately reflects the service provided and the decisions made by me, BRIANNA Romero 02/15/24 0916. Part of today???s visit was documented by Yesika DICKENS, acting as scribe. KORIN MCKENNA is a 68 year old F here today for review of her bone density study. She states that her pain has gotten worse and the worst of her pain comes from her mid back. She denies taking anything for pain. HPI from 12/17/23: KORIN MCKENNA is a 68 year old F here today for low back pain. She states that she has had pain for many years but has gotten worse over time. She has had to use a cane since the onset of her symptoms and relies on a shopping cart to lean forward for relief when shopping. Says she can only walk a block before needing to rest. She states that 3 years ago her work had her retire early because of disability and with all the tests they did she states they told her she has inflammatory arthritis. she does not take anything for the inflammatory arthritis. Her pain does radiate down both legs and she does have numbness and tingling in both legs, it is constant in the right leg and intermittent in the left leg. Pain goes down her lateral thighs to her knees. Also mentions that she has bilateral knee arthritis but has not been seen for that. She denies injury or surgery. She states that she is unable to have an MRI because she has a metal plate in her arm. She occasionally takes Tylenol for pain. NSAIDs give her hives and so she is not able to take any over the counter. Denies physical therapy and injections. She does note that she has a lump on her mid back and saw Dr. Marvin who states that it was a lipoma. She has been smoking since she was 13. No blood thinners, no diabetes. Ortho Exam General General: Yes no acute distress Neurologic: Yes alert and Yes oriented x3 Spine SPINE TESTING CERVICAL THORACIC LUMBAR Musculoskeletal Strength 0=absent - 5=normal Details: Neurological exam of the lower extremities shows 4+ power for right hip flexion, all other muscle groups 5x5 power. Normal sensations across all dermatomes. No hyperreflexia. No midline or paraspinal tenderness. 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 Coding Level of Care Code Off vis,est,level 3 Diagnoses Degeneration of intervertebral disc of lumbar region with discogenic back pain and lower extremity (more content not included)... Normal [facility] Wrist min 3 Viewson 02-14-19 25 Wrist min 3 Views [facility] [address] [place] [address] Wrist min 3 Views MR#: [id number] Acct: [id number] Name: KORIN MCKENNA Rep #: [id number] : 1955 68 From: Andrew Watson MD PCP: SANDRA Temple Status: DEP AMB Study: Wrist min 3 Views Date of Exam: 02/15/24 Exam# [id number] Ordering Dr: Tomasz Fernandez [id number] STUDY: X-RAY - RIGHT WRIST REASON FOR EXAM: Female, 68 years old. History of surgery. TECHNIQUE: 3 views of the right wrist were obtained. COMPARISON: None. FINDINGS: Normal visualized distal radius and ulna. Normal radiocarpal articulation. Normal distal radioulnar articulation. Normal carpal bones. Normal carpal articulations. Normal carpometacarpal articulation of the thumb. Normal second through fifth carpometacarpal articulations. There is transmetacarpal amputation through the proximal second through fourth metacarpals. There is ORIF hardware with metallic plate and screws in the fifth metacarpal. There is no demonstrated acute fracture. The soft tissue structures are unremarkable. RAD/Wrist min 3 Views IMPRESSION: Transmetacarpal amputation through the proximal second through fourth metacarpals. ORIF hardware with metallic plate and screws in the fifth metacarpal. No demonstrated acute fracture. Electronically Signed: Andrew Watson MD at 16:12 EST Reading Location ID and State: [address] [place] [address] , Service support , CC: SANDRA Venegas; BRIANNA Romero Newspaper Delivery Driver: Signed Normal [facility] Dexa Bone Density Studyon Dexa Bone Density Study [facility] Imaging Services [address] [place], [place] [id number] Dexa Bone Density Study MR#: [id number] Acct: [id number] Name: KORIN MCKENNA Rep #: [id number] : 1955 68 From: Marcos arreola MD PCP: SANDRA Temple Status: REG CLI Study: Dexa Bone Density Study Date of Exam: 01/24/24 Exam# [id number] Ordering Dr: Tomasz Fernandez [id number] STUDY: DUAL ENERGY X-RAY ABSORPTIOMETRY / DXA REASON FOR EXAM: Female, 68 years old. Pain TECHNIQUE: Bone Mineral Density (BMD) measurements of lumbar spine and bilateral hips were obtained. COMPARISON: None. FINDINGS: Lumbar Spine (L1-L4): g/cm2 (0.834) / T-score (-1.8) / Z-score (0.2) Findings are suggestive of osteopenia with a moderate fracture risk. Left Femur Total: g/cm2 (0.867) / T-score (-0.6) / Z-score (0.8) Left Femoral Neck: g/cm2 (0.657) / T-score (-1.7) / Z-score (0.0) Right Femur Total: g/cm2 (0.868) / T-score (-0.6) / Z-score (0.8) Right Femoral Neck: g/cm2 (0.693) / T-score (-1.4) / Z-score (0.3) BD/Dexa Bone Density Study IMPRESSION: The patient is considered osteopenic as outlined below according to World Uri Organization (WHO) criteria with a moderate fracture risk. Reference Information: The T-score is the number of standard deviations above or below the standard which is normal for young adults at their peak bone mineral density. The World Health Organization (WHO) interprets the T-scores as follows: Above -1 Normal bone density Between -1 and -2.5 Osteopenia Equal to / or below -2.5 Osteoporosis As a practical clinical guideline, osteopenia may be graded as follows: Mild -1 through -1.5 Moderate -1.6 through -2.0 Severe -2.1 through -2.4 The Z-score is the number of standard deviations above or below age-matched controls. A Z-score of less than -1.5 would be considered abnormal. References: 1. NIH Osteoporosis and Related Bone Diseases www osteo.org 2. International Society for Clinical Densitometry www iscd.org 3. National Osteoporosis Foundation www nof.org Electronically Signed: Marcos Davies MD at 15:02 EST , CC: SANDRA Venegas; BRIANNA Romero Newspaper Delivery Driver: Signed Normal [facility] L/S Spine Min 4 Views12-06 L/S Spine Min 4 Views [facility] [address] [place] [address] L/S Spine Min 4 Views MR#: [id number] Acct: [id number] Name: KORIN MCKENNA Rep #: [id number] : 1955 F 68 From: Trey Ascencio MD PCP: SANDRA Temple Status: DEP AMB Study: L/S Spine Min 4 Views Date of Exam: 12/17/23 Exam# [id number] Ordering Dr: Tomasz Fernandez [id number] STUDY: X-RAY - LUMBAR SPINE REASON FOR EXAM: Female, 68 years old. low back pain -- please do upright AP, LAT, flex/ext TECHNIQUE: 4 view(s) of the lumbar spine were obtained. COMPARISON: None FINDINGS: Normal lumbar lordosis. Mild levoscoliosis centered at L1. 2 mm retrolisthesis of L3 on L4. This is unchanged on flexion and extension views. There is multilevel endplate spondylosis of the lumbar vertebrae. There is multi-level degenerative disc disease with multi-level disc space narrowing. The soft tissue structures are unremarkable. RAD/L/S Spine Min 4 Views IMPRESSION: Mild levoscoliosis with degenerative disc disease. Electronically Signed: Trey Ascencio MD at 8:37 EST , CC: SANDRA Venegas; BRIANNA Romero Newspaper Delivery Driver: Signed Normal [facility] Orthopedic Visit Reporton Orthopedic Visit Report [facility] [address] [place] [address] [address] [place] [address] OFFICE VISIT Date of Service: 12/17/23 MR#: [id number] Acct: [id number] Name: KORIN MCKENNA Rep #: [id number] : 1955 Provider: BRIANNA Romero Age/Sex: 68/F Location: [facility] [place] Status: Signed Intake Vital Signs 12/04/23 09:33 12/17/23 08:49 Height 5 ft 3 in 5 ft 3 in Weight: 177 lb 176 lb 6 oz BMI 31.3 31.2 BP 155/89 H Blood Pressure Location Lt brachial Position Sitting Respiration 19 H Pulse 79 Pulse Source Monitor Temp 97.4 F L Temp Source Temporal Pulse Oximetry (%) 96 Oxygen Delivery Method room air Intake Visit Reasons: LUMBAR SPINE Accompanied by: Daughter Allergies aspirin Allergy (Intermediate, Verified 12/17/23 08:49) Other ciprofloxacin (From Cipro) Allergy (Intermediate, Verified 12/17/23 08:49) Hives codeine Allergy (Intermediate, Verified 12/17/23 08:49) Other latex Allergy (Intermediate, Verified 12/17/23 08:49) HIVE naproxen Allergy (Intermediate, Verified 12/17/23 08:49) Rash soy Allergy (Intermediate, Verified 12/17/23 08:49) Rash ibuprofen Allergy (Verified 12/17/23 08:49) Hives Medications ???Medication ???Instructions ???Recorded ???Confirmed ???Type albuterol sulfate 90 mcg/actuation inhalation 12/04/23 12/17/23 History aerosol inhaler cholecalciferol (vitamin D3) 25 25 mcg PO QDAY 1 month #30 caps 12/17/23 12/17/23 Rx mcg (1,000 unit) capsule Have you fallen in the past year?: No PFSH Medical History Lipoma Back pain Contact with and (suspected) exposure to other viral communicable diseases Post-menopausal Wears dentures Depression Anxiety Ambulates with cane Restless legs TIA (transient ischemic attack) Inflammatory arthritis History of hiatal hernia History of IBS Gastric reflux Chronic cough Leg cramps History of edema History of stress test History of irregular heartbeat Smoker Amputation of finger, right Surgical History History of appendectomy History of esophagogastroduodenoscopy (EGD) History of colonoscopy History of surgery on arm History of History of hysterectomy Hx of cholecystectomy Family History (Updated 12/17/23 @ 09:18 by Donna Cobb) Father Hypertension Diabetes CVA (cerebral vascular accident) Colon cancer Mother Hypertension Uterine cancer Thyroid goiter Social History Smoking Status: Current every day smoker tobacco type: cigarettes alcohol intake: never substance use type: does not use HPI LUMBAR SPINE Details: This documentation accurately reflects the service provided and the decisions made by me, BRIANNA Romero 12/17/23 0846. Part of today???s visit was documented by Yesika DICKENS, acting as scribe. KORIN MCKENNA is a 68 year old F here today for low back pain. She states that she has had pain for many years but has gotten worse over time. She has had to use a cane since the onset of her symptoms and relies on a shopping cart to lean forward for relief when shopping. Says she can only walk a block before needing to rest. She states that 3 years ago her work had her retire early because of disability and with all the tests they did she states they told her she has inflammatory arthritis. she does not take anything for the inflammatory arthritis. Her pain does radiate down both legs and she does have numbness and tingling in both legs, it is constant in the right leg and intermittent in the left leg. Pain goes down her lateral thighs to her knees. Also mentions that she has bilateral knee arthritis but has not been seen for that. She denies injury or surgery. She states that she is unable to have an MRI because she has a metal plate in her arm. She occasionally takes Tylenol for pain. NSAIDs give her hives and so she is not able to take any over the counter. Denies physical therapy and injections. She does note that she has a lump on her mid back and saw Dr. Marvin who states that it was a lipoma. She has been smoking since she was 13. No blood thinners, no diabetes. Ortho Exam General General: Yes no acute distress Neurologic: Yes alert and Yes oriented x3 Spine SPINE TESTING CERVICAL THORACIC LUMBAR Musculoskeletal Strength 0=absent - 5=normal Details: Neurological exam of the lower extremities shows 4+ power for right hip flexion, all other muscle groups 5x5 power. After muscle testing she got a muscle cramp over her tibialis anterior muscle. Normal sensations across all dermatomes. No hyperreflexia. No midline or paraspinal tenderness. Describes an occasionally trigger finger of her left hand, particul (more content not included)... Normal [facility] Surgery Visit Reporton 12-03 Surgery Visit Report [facility] [address] [place] [address] OFFICE VISIT Date of Service: 12/04/23 MR#: [id number] Acct: [id number] Name: KORIN MCKENNA Rep #: [id number] : 1955 Provider: Dr. Gaston blankenship MD Age/Sex: 68/F Location: [facility] Status: Signed Intake Vital Signs 10/27/22 10:07 12/04/23 09:33 Height 5 ft 3 in 5 ft 3 in Weight: 177 lb BMI 31.3 BP 155/89 H Blood Pressure Location Lt brachial Position Sitting Respiration 19 H Pulse 79 Pulse Source Monitor Temp 97.4 F L Temp Source Temporal Pulse Oximetry (%) 96 Oxygen Delivery Method room air Intake Visit Reasons: L SIDE LARGE LUMP UNDER SKIN Chief Complaint: L side large lmp under skin Accompanied by: Daughter Is patient in pain?: No Allergies aspirin Allergy (Intermediate, Verified 12/04/23 09:34) Other ciprofloxacin (From Cipro) Allergy (Intermediate, Verified 12/04/23 09:34) Hives codeine Allergy (Intermediate, Verified 12/04/23 09:34) Other latex Allergy (Intermediate, Verified 12/04/23 09:34) HIVE naproxen Allergy (Intermediate, Verified 12/04/23 09:34) Rash soy Allergy (Intermediate, Verified 12/04/23 09:34) Rash ibuprofen Allergy (Verified 12/04/23 09:34) Hives Medications ???Medication ???Instructions ???Recorded ???Confirmed ???Type omeprazole 20 mg capsule,delayed 20 mg PO Q6H PRN acid reflux 10/20/22 10/23/22 History release albuterol sulfate 90 mcg/actuation inhalation 12/04/23 12/04/23 History aerosol inhaler Have you fallen in the past year?: No PFSH Medical History (Updated 12/04/23 @ 09:42 by Sudha Nguyễn LPN) Lipoma Back pain Contact with and (suspected) exposure to other viral communicable diseases Post-menopausal Wears dentures Depression Anxiety Ambulates with cane Restless legs TIA (transient ischemic attack) Inflammatory arthritis History of hiatal hernia History of IBS Gastric reflux Chronic cough Leg cramps History of edema History of stress test History of irregular heartbeat Smoker Amputation of finger, right Surgical History History of appendectomy History of esophagogastroduodenoscopy (EGD) History of colonoscopy History of surgery on arm History of History of hysterectomy Hx of cholecystectomy Social History Smoking Status: Current every day smoker tobacco type: cigarettes alcohol intake: never substance use type: does not use HPI HPI HPI: Patient is a 68-year-old female with a small lump on the left flank. She states she is having a lot of back pain and wonders if this is related. She says has been there for several years. ROS General General: Yes fatigue; No weight change, appetite, colon cancer, breast cancer or weakness HEENT HEENT: No difficulty swallowing, eye injury, eye surgery, swollen glands or hoarseness Endo Endocrine: No thyroid disease, diabetes mellitus, thyroid cancer, Hair loss, heat intolerance or cold intolerance Skin Skin: No rash or changing moles Musc Musculoskeletal: Yes arthritis; No back problems, rheumatoid arthritis, gout or joint pain Cardio Cardiovascular: Yes murmur; No pacemaker, heart disease, atrial fibrillation, high blood pressure, heart attack, heart stent, palpitations, shortness of breat with exertion or chest pain Psych Psychiatric: Yes depression and anxiety; No hearing voices Resp Respiratory: No shortness of breath, No sleep apnea, Yes cough, No COPD, Yes asthma, No emphysema and No wheezing Gastro Gastrointestinal: Yes abdominal pain, No nausea or vomiting, No diarrhea, No constipation, No blood in stool, Yes acid reflux, No hemorrhoids, No ulcers, No gallbladder problem and No black,tarry stools Herson Hematologic: No blood thinners, No blood disorders, No bleeding, No anemia and No blood clots Neuro Neurologic: Yes numbness, Yes tingling and No weakness Exam Const General: cooperative Orientation: alert and oriented x3 HENMT Head: normal to inspection Neck Neck: normal visual inspection and full ROM Chest Chest palpation inspection: normal inspection of the chest Resp Effort Inspection: normal respiratory effort Auscultation: clear to auscultation bilaterally Cardio Rate: regular rate Rhythm: regular rhythm GI Inspection: non-distended Palpation: soft and nontender Skin General: no rashes or lesions noted Neuro General: patient alert and patient oriented x3 Extrem General: full ROM Psych Appearance: grossly normal Mental Status: mental status grossly normal Assessment and Plan Assessment and Plan (1) Lipoma: Status: Acute Plan: The patient has a left fl (more content not included)... Normal [facility] Provider Note - ED v3on 03-08 Provider Note - ED v3 Provider Note: Chart Review: HISTORY OF PRESENTING ILLNESS KORIN is a 65 year old Female and was seen by me at 18-Mar-2021 16:00. The historian is the patient. Triage Information: Most recent Vital Sign Value Date PAST MEDICAL HISTORY ALLERGIES/INTOLERANCES: Allergy Allergen: codeine Type: Drug Reaction: Arrhythmia Allergen: aspirin Type: Drug Reaction: Rash Allergen: ibuprofen Type: Drug Reaction: Rash HEALTH HISTORY: No known health issues aside from seasonal allergies. Follows with PCP (Judy Venegas). Family history: no pertinent history. Social history: Current smoker 1/2 PPD- is working on cessation. 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 CRITICAL CARE VITAL SIGNS: T PRBP SpO2O2(LPM) %FiO2 Method 18-Mar-2021 15:52:[id number] 96 MDM MDM/ED COURSE: This note was generated with voice recognition software and may contain errors including spelling, grammar, syntax, and misrecognization of what was dictated. CHIEF COMPLAINT L ear pain HISTORY OF PRESENT ILLNESS Patient presents today for evaluation of L ear pain with diminished hearing x 5 days. Reports was seen here on 02/18/21 and treated for AOM/AOE with Amoxicillin and Ofloxacin drops. Sxs didn't improve, so she saw her PCP for follow up and was then started on Zithromax and neomycin drops. She finished everything last , and had complete relief of sxs until she started to develop pain again on Sunday. Has appt with PCP this upcoming Sunday but states, I can't wait that long d/t discomfort. She has baseline nasal congestion and a cough that she attributes to her smoking, but states these are unchanged; reports she has a little dizziness/instability that she attributes to the possible ear infection. She denies any sore throat, R ear pain, change in appetite, fevers/chills, malaise, nausea/vomiting, lightheadedness, constipation/diarrhea, or other systemic sxs. Aside from the ear infection, she does not feel she is ill. No known trauma to ear or recent swimming/water in ear. Admits restarted the antibiotic drops her PCP gave her (neomycin/polymyxin B/HC) today. Aside from tylenol, which didn't provide much relief, has not tried any other OTC medications or conservative measures for her symptoms. Reports had an ENT in the past - has not been seen in ~2 years. Is a current smoker - working on cessation. REVIEW OF SYSTEMS 10 systems reviewed negative with exception of history of present illness listed above PHYSICAL EXAMINATION General: Pleasant, older female, in no acute distress. Eyes: Pupils are equal, round and reactive. Bilat conjunctiva clear; no exudate to eyes noted. HENT: Normocephalic. R TM with cloudy fluid but otherwise normal; R ear canal normal. L canal moderately edematous and mildly erythematous, with scant pale yellow/milky otorrhea noted throughout canal; Profuse, purulent, yellow otorrhea and perforation noted to L TM; unable to visualize any landmarks. Has tenderness with manipulation of L tragus/pinna. No tenderness, edema/erythema noted over mastoid. Nasal mucosa slightly boggy; no sinus tenderness; no audible nasal congestion. Mucous membranes moist. No oral lesions; posterior pharynx unremarkable and without oropharyngeal exudate. Able to swallow without difficulty. Neck: Supple; tender high anterior cervical lymphadenopathy on L side. Respiratory: Respirations are easy and non-labored, with normal rate. Symmetrical chest wall expansion. Lungs are clear to auscultation - no wheezing, rhonchi, or rales. Breath sounds equal. No cough noted during visit. Cardiovascular: Normal rate, Regular rhythm. Normal S1S2. No m/r/g. Musculoskeletal: Ambulates and changes position without any instability/reported dizziness. Integumentary: Villas, warm, dry, and Intact. Normal skin turgor; no rashes appreciated. Neurologic: Alert, Oriented, Sensory and motor function grossly intact. Cognition and Speech: Oriented; Speech clear and coherent Psychiatric: Cooperative, Appropriate mood & affect. MEDICAL DECISION MAKING Course: Worsening; stable. Impression/Plan: Symptoms/exam again consistent with AOM + AOE of L ear. Suspect ruptured TM. Pt requesting something not as strong for antibiotic, but over the past month, has failed courses of Amoxicillin + Ofloxacin, as well as Zithromax + neomycin/polymyxin B/hydrocortisone drops. Does indicate she (more content not included)... Normal [facility] Provider Note - ED v3on 02-05 Provider Note - ED v3 Provider Note: Chart Review: HISTORY OF PRESENTING ILLNESS KORIN is a 65 year old Female and was seen by me at 18-Feb-2021 15:05. The historian is the patient. Triage Information: Most recent Vital Sign Value Date PAST MEDICAL HISTORY ALLERGIES/INTOLERANCES: Allergy Allergen: codeine Type: Drug Reaction: Arrhythmia Allergen: aspirin Type: Drug Reaction: Rash Allergen: ibuprofen Type: Drug Reaction: Rash HEALTH HISTORY: No known health issues aside from seasonal allergies. Family history: no pertinent history. Social history: Current smoker 1/2 PPD. OUTPATIENT MEDICATIONS: Home Medications Review Status for Reconciliation: Complete Med Status: Patient Currently Takes Medications Drug Name: amoxicillin 875 mg oral tablet Instructions: 1 tab(s) orally 2 times a day x 10 days Drug Name: ofloxacin 0.3% otic solution Instructions: 10 drop(s) in affected ear once a day x 7 days SIGNIFICANT EVENTS: History of R hand repair s/p farm accident; also has history of 2 c-sections, cholecystectomy, and hysterectomy. CRITICAL CARE VITAL SIGNS: T PRBP SpO2O2(LPM) %FiO2 Method 18-Feb-2021 14:37:[id number] 95 MDM MDM/ED COURSE: This note was generated with voice recognition software and may contain errors including spelling, grammar, syntax, and misrecognization of what was dictated. CHIEF COMPLAINT L ear pain HISTORY OF PRESENT ILLNESS Patient presents today for evaluation of L ear pain x 3 days. Reports had appt with her PCP today but they cancelled, and states, couldn't take it any longer. She reports has had pain and yellowish-simeon pus that has been draining out of her ear; reports she also had a wad of something black fall out of her ear this AM - is unsure if it was a bug or wax or what it was. She has baseline nasal congestion, but states this is unchanged; she denies any sore throat, R ear pain, cough, change in appetite, fevers, nausea/vomiting, constipation/diarrhea, or other systemic sxs. Aside from the ear infection, she does not feel she is ill. No known trauma to ear or recent swimming/water in ear. Aside from tylenol, which didn't provide much relief; has not tried any other OTC medications or conservative measures for her symptoms. Follows regularly with PCP. REVIEW OF SYSTEMS 10 systems reviewed negative with exception of history of present illness listed above PHYSICAL EXAMINATION General: Pleasant female, in no acute distress, although appears somewhat uncomfortable d/t L ear pain. Eyes: Pupils are equal, round and reactive. Bilat conjunctiva clear; no exudate to eyes noted. HENT: Normocephalic. R TM/canal normal; L TM and canal intact but TM bulging with purulent fluid noted behind intact TM; landmarks distorted. Canal also moderately edematous and mildly erythematous; has tenderness with manipulation of L tragus/pinna. No tenderness, edema/erythema noted over mastoid. Nasal mucosa slightly boggy; no sinus tenderness; + very mild audible nasal congestion. Mucous membranes moist. No oral lesions; posterior pharynx mildly injected but without oropharyngeal exudate. Able to swallow without difficulty. Neck: Supple; tender high anterior cervical lymphadenopathy bilat (L>R). Respiratory: Respirations are easy and non-labored, with normal rate. Symmetrical chest wall expansion. Lungs are clear to auscultation - no wheezing, rhonchi, or rales. Breath sounds equal. No cough noted during visit. Cardiovascular: Normal rate, Regular rhythm. Normal S1S2. No m/r/g. Musculoskeletal: Ambulates and changes position without any instability. Integumentary: Villas, warm, dry, and Intact. Normal skin turgor; no rashes appreciated. Neurologic: Alert, Oriented, Sensory and motor function grossly intact. Cognition and Speech: Oriented; Speech clear and coherent Psychiatric: Cooperative, Appropriate mood & affect. MEDICAL DECISION MAKING Course: Worsening; stable. Impression/Plan: Symptoms/exam consistent with AOM + AOE of L ear. Will start Amoxicillin BID x 10 days and Ofloxacin drops QD x 10 days; also encouraged to continue daily seasonal allergies medication and consider saline nasal spray. Encouraged to prevent any further water/additional liquids/debris from entering the ear canal as able, to rest, to push fluids, and can use PRN Tylenol for management of discomfort. Reviewed expectations for resolution of infection and improvement in symptoms, and encouraged to RTC or see PCP if symptoms not improving over the 2-3 days, or to seek care sooner if they worsen. Patient seems satisfied and agrees with plan of care; questions were encouraged and answered. Problem: L ear pain Data reviewed/analyzed: No lab work, imaging, or tests outside of physical exam done today; no previous documents reviewed for today's visit. Risk: Low risk of morbidity/mortality. Problems ad (more content not included)... Normal [facility] BUNon 07-02-2018 Urea nitrogen mass conc 11 mg/dL 8 - 25 mg/dL [facility] CRP, Inflammationon 07-03-19 19 CRP mass conc 3.2 mg/L <=10.0 [facility] Creatinine, serumon 07-03-19 19 Creatinine mass conc 0.76 mg/dL 0.6 - 1.2 mg/dL [facility] GFR/1.73 sq M predicted among non-blacks MDRD vol rate/area (S/P/Bld) The eGFR should be used for monitoring renal function only and not for medication dosing. [facility] GFR/1.73 sq M.predicted CKD-EPI vol rate/area (S/P/Bld) 84 >=60 mL/min/1.73 m2 [facility] Hepatic Function Panelon Albumin mass conc 3.8 g/dL 3.2 - 5.2 g/dL [facility] ALP enzyme act/vol 66 U/L 40 - 150 U/L [facility] ALT enzyme act/vol 18 U/L 14 - 65 U/L [facility] AST enzyme act/vol 15 U/L 0 - 45 U/L [facility] Bilirubin mass conc 0.3 mg/dL 0 - 1.3 mg/dL [facility] Bilirubin.conjuga jhoan mass conc mg/dL 0 - 0.4 mg/dL [facility] Protein mass conc 7.2 g/dL 6 - 8 g/dL [facility] lth Otheron 07-02-2018 Interpretation and review of laboratory results Normal [facility] Interface, Rad In Fu ji Speechq - 07/02/2018 5:39 PM EDT EXAMINATION: XR KNEES BILATERAL 3 VIEWS (SPECIFY VIEWS IN COMMENTS) HISTORY: Pain and swelling ORDERING SYSTEM PROVIDED HISTORY: Pain and swelling, TECHNOLOGIST PROVIDED HISTORY: Reason for exam: Bilateral Knee pain, Rt worse than Lt. no injury, trauma, or prev. surgery Illness/Other Cancer History: un Surgery, RadiationHistory: un Encounter Type: Unknown Additional signs and symptoms: un ORDERING SYSTEM PROVIDED DIAGNOSIS CODES: R52 Pain COMPARISON: Right knee x-ray 01/19/2009. TECHNIQUE: Three views bilateral knees. FINDINGS: No acute fracture or dislocation is identified. There are moderate tricompartmental degenerative changes which have progressed from the prior study. The adjacent soft tissues are unremarkable. IMPRESSION: Degenerative changes. No acute osseous abnormality identified. [employer] Workstation ID: [id number] [facility] EXAMINATION: XR KNEE S BILATERAL 3 VIEWS (SPECIFY VIEWS IN COMMENTS) HISTORY: Pain and swelling ORDERING SYSTEM PROVIDED HISTORY: Pain and swelling, TECHNOLOGIST PROVIDED HISTORY: Reason for exam: Bilateral Knee pain, Rt worse than Lt. no injury, trauma, or prev. surgery Illness/Other Cancer History: un Surgery, RadiationHistory: un Encounter Type: Unknown Additional signs and symptoms: ORDERING SYSTEM PROVIDED DIAGNOSIS CODES: R52 Pain COMPARISON: Right knee x-ray 01/19/2009. TECHNIQUE: Three views bilateral knees. FINDINGS: No acute fracture or dislocation is identified. There are moderate tricompartmental degenerative changes which have progressed from the prior study. The adjacent soft tissues are unremarkable. [facility] Degenerative changes . No acute osseous abnormality identified. [employer] Workstation ID: [id number] [facility] Sedimentation Rateon 019 ESR Velocity (Bld) 16 mm/h [facility] Interpretation and review of laboratory results Normal [facility] XR CERVICAL SPINE AP/LATon 0 07-02-2018 XR CERVICAL SPINE AP/LAT EXAMINATION: XR CERVICAL SPINE AP/LAT HISTORY: ORDERING SYSTEM PROVIDED HISTORY: Pain and loss of motion, TECHNOLOGIST PROVIDED HISTORY: Reason for exam: Chronic Neck pain no injury Illness/Other Cancer History: un Surgery, RadiationHistory: un Encounter Type: Unknown Additional signs and symptoms: un ORDERING SYSTEM PROVIDED DIAGNOSIS CODES: R52 Pain COMPARISON: None. FINDINGS: Three views of the cervical spine. No acute fracture or traumatic malalignment. Cervical lordosis is straightened. 2 mm degenerative retrolisthesis of C5 upon C6. C7-T1 articulation is intact. Vertebral body heights are normal. Multilevel disc space narrowing with endplate sclerosis and marginal osteophytes at the C4-5, C5-6 and C6-7 levels. No prevertebral soft swelling. IMPRESSION: 1. No acute fracture or traumatic malalignment. 2. C5-6 degenerative listhesis measuring 2 mm. 3. Straightening of the cervical lordosis with moderate degenerative disc changes at C4-5 through C6-7. /[facility] Workstation ID: [id number] Dictated by: ADEEL GRANADO on SunJuly 03, 2018 9:12:25 AM EDT Transcribed by: ISAI FERRER on SunJuly 03, 2018 9:42:58 AM EDT Finalized by: ADEEL GRANADO on SunJuly 03, 2018 6:00:39 PM EDT [facility] Comment on above: Order Comment: Reaso n for exam?:Chronic Neck pain no injury Injury/Trauma or Illness?:Illness/Other How long have you had these symptoms (acute/chronic)?:Unknown History of cancer?:un Surgeries, chemotherapy, or radiation?:un Type of Exam?:Unknown Additional signs and symptoms?:un XR KNEES BILATERAL 3 VIEWS ( SPECIFY VIEWS IN COMMENTS)on 07-02-2018 XR KNEES BILATERAL 3 VIEWS (SPECIFY VIEWS IN COMMENTS) EXAMINATION: XR KNEES BILATERAL 3 VIEWS (SPECIFY VIEWS IN COMMENTS) HISTORY: Pain and swelling ORDERING SYSTEM PROVIDED HISTORY: Pain and swelling, TECHNOLOGIST PROVIDED HISTORY: Reason for exam: Bilateral Knee pain, Rt worse than Lt. no injury, trauma, or prev. surgery Illness/Other Cancer History: un Surgery, RadiationHistory: un Encounter Type: Unknown Additional signs and symptoms: un ORDERING SYSTEM PROVIDED DIAGNOSIS CODES: R52 Pain COMPARISON: Right knee x-ray 01/19/2009. TECHNIQUE: Three views bilateral knees. FINDINGS: No acute fracture or dislocation is identified. There are moderate tricompartmental degenerative changes which have progressed from the prior study. The adjacent soft tissues are unremarkable. IMPRESSION: Degenerative changes. No acute osseous abnormality identified. [facility] Workstation ID: [id number] Dictated by: JAVID BARBER on SunJuly 02, 2018 4:35:07 PM EDT Transcribed by: DEMETRIO SUTTON IN [employer] [address] SPEECHQ on SunJuly 02, 2018 4:40:34 PM EDT Finalized by: JAVID BARBER on SunJuly 02, 2018 5:36:52 PM EDT [facility] Comment on above: Order Comment: AP, l ateral and sunrise views weightbearing. Reason for exam?:Bilateral Knee pain, Rt worse than Lt. no injury, trauma, or prev. surgery Injury/Trauma or Illness?:Illness/Other How long have you had these symptoms (acute/chronic)?:Chronic History of cancer?:un Surgeries, chemotherapy, or radiation?:un Type of Exam?:Unknown Additional signs and symptoms?:un MARIUSZ by IFAon 04-02-2018 MARIUSZ Pattern SPCK Normal [facility] MARIUSZ Titer D320 Abnormal Negative [facility] Nuclear Ab IF titer (S) Positive Abnormal Negative [facility] Rheumatoid Factoron 03-30-19 19 Rheumatoid Factor <10 Normal <16 [facility] Vital Signs Date Time Vital Sign Value Performing Clinician Facility 03-18-2021 17:52-0500 Body height 160 cm Jeanette Sandoval Other Phone: [facility] 03-18-2021 17:52-0500 Body temperature 97.52 [degF] Jeanette Sandoval Other Phone: [facility] 03-18-2021 17:52-0500 Diastolic blood pressure 88 mm[Hg] Jeanette Sandoval Other Phone: [facility] 03-18-2021 17:52-0500 Heart rate 99 /min Jeanette Sandoval Other Phone: [facility] 03-18-2021 17:52-0500 Respiratory rate 16 /min Jeanette Sandoval Other Phone: [facility] 03-18-2021 17:52-0500 SaO2% (BldA) [Mass fraction] 96 % Jeanette Sandoval Other Phone: [facility] 03-18-2021 17:52-0500 Systolic blood pressure 134 mm[Hg] Jeanette Sandoval Other Phone: [facility] 02-18-2021 16:37-0500 Body height 162.5 cm Jeanette Sandoval Other Phone: [facility] 02-18-2021 16:37-0500 Body temperature 97.88 [degF] Jeanette Sandoval Other Phone: [facility] 02-18-2021 16:37-0500 Diastolic blood pressure 80 mm[Hg] Jeanette Sandoval Other Phone: [facility] 02-18-2021 16:37-0500 Heart rate 81 /min Jeanette Sandoval Other Phone: [facility] 02-18-2021 16:37-0500 Respiratory rate 16 /min Jeanette Sandoval Other Phone: [facility] 02-18-2021 16:37-0500 SaO2% (BldA) [Mass fraction] 95 % Jeanette Sandoval Other Phone: [facility] 02-18-2021 16:37-0500 Systolic blood pressure 138 mm[Hg] Jeanette Sandvoal Other Phone: [facility] 07-16-2018 14:47-0400 BMI (Body Mass Index) 29.7 kg/m2 [facility] 07-16-2018 14:47-0400 Body weight 78.47 kg [facility] 07-16-2018 14:47-0400 BP Diastolic 81 mm[Hg] [facility] 07-16-2018 14:47-0400 BP Systolic 127 mm[Hg] [facility] 07-16-2018 14:47-0400 Pulse (Heart Rate) 97 /min [facility] 07-02-2018 13:08-0400 BMI (Body Mass Index) 29.76 kg/m2 [facility] 07-02-2018 13:08-0400 BP Diastolic 74 mm[Hg] [facility] 07-02-2018 13:08-0400 BP Systolic 125 mm[Hg] [facility] 07-02-2018 13:08-0400 Height 162.6 cm [facility] 07-02-2018 13:08-0400 Pulse (Heart Rate) 80 /min [facility] 07-02-2018 13:08-0400 Weight 78.65 kg [facility]ex[facility] Encounters Encounter Date Encounter Type Care Provider Facility Start: 11-26-2024 ambulatory Vy Palencia Fa cility:[facility] Start: 10-21-2024 End: 10-21-2024 ambulatory Ginny Venegas TECHNICAL IMPLEMENTATION LEAD[employer]C Work Phone: -Radiology [facility] Start: 10-21-2024 End: 10-21-2024 Patient encounter procedure Vy Palencia TECHNICAL IMPLEMENTATION LEAD-C -Radiology [facility] Work Phone: Start: 10-21-2024 End: 10-21-2024 ambulatory Vy Palencia Facility:[facility] Start: 04-10-2024 End: 04-10-2024 ambulatory JEANETTE [facility] Start: 04-02-2024 Encounter for genera l adult medical examination without abnormal findings Tomasz Fernandez [facility] Start: 04-02-2024 End: 04-02-2024 ambulatory Ginny Venegas TECHNICAL IMPLEMENTATION LEAD-C Work Phone: [facility] Work Phone: Start: 04-02-2024 End: 04-02-[address] Shekhar Vigil MD -Radiology, [facility] Work Phone: Start: 04-02-2024 End: 04-02-2024 ambulatory Shekhar Vigil Facility:[facility] Start: 03-17-2024 End: 03-17-2024 Patient encounter procedure Tomasz REED -MRI - [facility] Work Phone: Start: 03-17-2024 End: 03-17-2024 ambulatory Ginny Venegas NP Facility:[facility] Start: 02-15-2024 End: 02-15-2024 Patient encounter procedure Tomasz REED -[facility] Work Phone: Start: 02-15-2024 End: 02-15-2024 ambulatory Ginny Venegas TECHNICAL IMPLEMENTATION LEAD [facility] Start: 01-24-2024 End: 01-24-2024 Patient encounter procedure Tomasz REED -Outpatient [facility] D[facility]ometry Work Phone: Start: 01-24-2024 End: 01-24-2024 ambulatory Ginny Venegas TECHNICAL IMPLEMENTATION LEAD Facility:[facility] Start: 12-24-2023 End: 02-04-2024 ambulatory TOMASZ FERNANDEZ Paulie [facility] Start: 12-17-2023 End: 12-17-2023 ambulatory Ginny Venegas TECHNICAL IMPLEMENTATION LEAD Facility[facility] Start: 12-04-2023 End: 12-04-2023 ambulatory Ginny Venegas TECHNICAL IMPLEMENTATION LEAD Facility:[facility] Start: 03-18-2021 End: 03-18-2021 Emergency department patient visit Kezia Gonzalez [facility] Start: 02-18-2021 End: 02-18-2021 Emergency department patient visit Kezia Gonzalez [facility] 02 Start: 04-08-2020 End: 04-08-2020 Orders Only Leeanne Magaña Work Phone: [facility] Start: 09-09-2018 Patient encounter procedure [facility] Start: 07-16-2018 End: 07-16-2018 Patient encounter procedure [facility] Start: 07-16-2018 End: 07-16-2018 Office outpatient visit 15 minutes Axel [facility] Work Phone: [facility] Comment on above: Rheumatoid arthritis of multiple sites with negative rheumatoid factor (HCC) (Primary Dx) Start: 07-08-2018 Patient encounter procedure [facility] Start: 07-02-2018 End: 07-06-2018 Patient encounter procedure [facility] Start: 07-02-2018 End: 07-02-2018 Patient encounter procedure [facility] Work Phone: [facility] Comment on above: Pain Start: 07-02-2018 End: 07-02-2018 Office outpatient new 45 minutes Jeanette Sandoval Work Phone: [facility] Comment on above: Pain (Primary Dx); Elevated antinuclear antibody (MARIUSZ) level Procedures Date Procedure Procedure Detail Performing Clinician Start: 10-21-2024 Radiologic exam knee complete 4/more views Ginny Venegas TECHNICAL IMPLEMENTATION LEAD[employer]C Work Phone: Start: 04-02-2024 X-ray of thoracic sp ine, three views Ginny Venegas TECHNICAL IMPLEMENTATION LEAD-C Work Phone: Start: 02-15-2024 Plain x-ray of wrist Bailey TECHNICAL IMPLEMENTATION LEAD-C Work Phone: Start: 01-24-2024 Dual energy X-ray absorptiometry Ginny Venegas TECHNICAL IMPLEMENTATION LEAD-C Work Phone: Start: 07-02-2018 Radiologic examinati on knee 3 views Axel Fall Work Phone: Plan of Treatment Date Care Activity Detail Author Start: 02-15-2024 Patient referral [facility] Work Phone: Start: 10-07-2019 Influenza vaccinatio n given Sequential Influenza Vaccine (#1) [facility] Start: 10-06-2018 Influenza vaccinatio n given SEQUENTIAL INFLUENZA VACCINE (Season Ended) [facility] Start: 07-16-2018 End: 07-16-2018 Office Visit 07/16/2018 Office Visit Orthopedic Surgery Axel Fall MD [address] [place] [id number] [facility] Orthopedic and [facility] Start: 04-12-2005 Administration of he rpes zoster vaccine Zoster Vaccines (1 of 2) [facility] Start: 04-12-2005 Screening for malign ant neoplasm of colon [facility] Start: 1971 COVID-19 Vaccine (1 of 2) COVI D-19 Vaccine (1 of 2) [facility] Start: 04-12-1970 HIV screening HIV Screening [facility] Start: 1967 Adolescent depressio n screening assessment Depression Screening (PHQ9) [facility] Start: 04-12-1958 History and physical examination, annual for health maintenance Wellness Visit [facility] Start: 1955 Hepatitis C antibody , confirmatory test HEPATITIS C SCREENING [facility] Start: 1955 Protein mass conc Mammogram [facility] Start: 1955 Screening for malign ant neoplasm of cervix PAP SMEAR [facility] Start: 1955 Screening for malign ant neoplasm of colon Colorectal Cancer Screening: Colonoscopy [facility] Start: 1955 Screening mammography [facility]ammogram [facility] Start: 1955 Tetanus vaccination [facility] End: 07-03-2019 Anti-cyclic citrullinated peptide antibody level [facility] Antibody Lab Routine Elevated antinuclear antibody (MARIUSZ) level 1 Occurrences starting 07/02/2018 until 07/03/2019 [facility] Comment on above: 1 Occurrences starti ng 07/02/2018 until 07/03/2019 Anti-cyclic citrulli nated peptide antibody level [facility] Antibody Lab Routine Elevated antinuclear antibody (MARIUSZ) level 07/02/2018 3:13 PM EDT [facility] End: 07-03-2019 Extractable nuclear antigen antibody screening test AVANI Screen (SSA/B,SM,HOGSHEAD BUILDER,SCL70,DORA 1) Lab Routine Elevated antinuclear antibody (MARIUSZ) level 1 Occurrences starting 07/02/2018 until 07/03/2019 [facility] Comment on above: 1 Occurrences starti ng 07/02/2018 until 07/03/2019 Extractable nuclear antigen antibody screening test AVANI Screen (SSA/B,SM,HOGSHEAD BUILDER,SCL70,DORA 1) Lab Routine Elevated antinuclear antibody (MARIUSZ) level 07/02/2018 3:13 PM EDT [facility] End: 07-03-2019 Jyhczsu-9-kxtowrtam dehydrogenase measurement, quantitative Glucose 6 Phosphate Dehydrogenase, Qn, RBC Lab Routine Elevated antinuclear antibody (MARIUSZ) level 1 Occurrences starting 07/02/2018 until 07/03/2019 [facility] Comment on above: 1 Occurrences starti ng 07/02/2018 until 07/03/2019 Hrxrydd-1-jqfzycguv dehydrogenase measurement, quantitative Glucose 6 Phosphate Dehydrogenase, Qn, RBC Lab Routine Elevated antinuclear antibody (MARIUSZ) level 07/02/2018 3:13 PM EDT [facility] End: 07-03-2019 Hepatitis B surface antibody measurement Hepatitis B Surface Antibody Lab Routine Elevated antinuclear antibody (MARIUSZ) level 1 Occurrences starting 07/02/2018 until 07/03/2019 [facility] Comment on above: 1 Occurrences starti ng 07/02/2018 until 07/03/2019 Hepatitis B surface antibody measurement Hepatitis B Surface Antibody Lab Routine Elevated antinuclear antibody (MARIUSZ) level 07/02/2018 3:13 PM EDT [facility] End: 07-03-2019 Hepatitis C antibody measurement Hepatitis C Antibody Lab Routine Elevated antinuclear antibody (MARIUSZ) level 1 Occurrences starting 07/02/2018 until 07/03/2019 [facility] Comment on above: 1 Occurrences starti ng 07/02/2018 until 07/03/2019 Hepatitis C antibody measurement Hepatitis C Antibody Lab Routine Elevated antinuclear antibody (MARIUSZ) level 07/02/2018 3:13 PM EDT [facility] Patient referral [facility] Work Phone: End: 07-03-2019 Radiologic examination of cervical spine, anteroposterior and lateral XR Cervical Spine AP/LAT Imaging Routine Pain 1 Occurrences starting 07/02/2018 until 07/03/2019 [facility] Comment on above: 1 Occurrences starti ng 07/02/2018 until 07/03/2019 Radiologic examinati on of cervical spine, anteroposterior and lateral XR Cervical Spine AP/LAT Imaging Routine Pain 07/02/2018 2:31 PM EDT [facility] End: 07-02-2018 Radiologic examination of cervical spine, anteroposterior and lateral XR Cervical Spine AP/LAT Imaging Routine Pain Once for 1 Occurrences starting 07/02/2018 until 07/02/2018 [facility] Comment on above: Once for 1 Occurrenc es starting 07/02/2018 until 07/02/2018 End: 07-03-2019 Rheumatoid factor, quantitative Rheumatoid factor Lab Routine Elevated antinuclear antibody (MARIUSZ) level 1 Occurrences starting 07/02/2018 until 07/03/2019 [facility] Comment on above: 1 Occurrences starti ng 07/02/2018 until 07/03/2019 Rheumatoid factor, quantitative Rheumatoid factor Lab Routine Elevated antinuclear antibody (MARIUSZ) level 07/02/2018 3:13 PM EDT [facility] End: 07-03-2019 Tuberculosis screening M. Tuberculosis by QuantiFERON Lab Routine Elevated antinuclear antibody (MARIUSZ) level 1 Occurrences starting 07/02/2018 until 07/03/2019 [facility] Comment on above: 1 Occurrences starti ng 07/02/2018 until 07/03/2019 Tuberculosis screening M. Tuberc ulosis by QuantiFERON Lab Routine Elevated antinuclear antibody (MARIUSZ) level 07/02/2018 3:13 PM EDT [facility] Payers Date Payer Category Payer Self-pay 2023 Medicaid [id number] 2023 Medicare [id number] 2018 Medicaid [facility] MANAGED [facility] MEDICAID COMMUNITY PLAN xxxxxxxxx 2018-Present xxxxxxxxx [id number] 2018 Medicaid [id number] 2018 Medicaid [employer] MANAGED MEDI CAID U[employer] MEDICAID COMMUNITY PLAN [id number] 2018-Present [id number] 1955 Unknown [id number] [id number] 1955 Unknown [id number] 2.16.840.1.276834.3.579.2.903 1955 Unknown [id number] 2.16.840.1.650048.3.579.2.903 1955 Unknown [id number] 2.16.840.1.451838.3.579.2.903 1955 Unknown [id number] 2.840.1.775974.3.579.2.903 1955 Unknown [id number] 2.840.1.430487.3.579.2.903 1955 Unknown [id number] 2..840.1.927076.3.579.2.903 1955 Unknown [id number] 2.16.840.1.240520.3.579.2.651 1955 Unknown [id number] 2.16.840.1.342564.3.579.2.651 Unknown Unknown [id number] 2.16.840.1.885583.3.579.2.462 Unknown [id number] 2.16.840.1.521160.3.579.2.462 Unknown [id number] 2.16.840.1.816633.3.579.2.462 Unknown [id number] 2.16.840.1.381099.3.579.2.462 Unknown [id number] 2.16.840.1.173092.3.579.2.462 Unknown [id number] 2.16.840.1.536158.3.579.2.462 Unknown [id number] 2.16.840.1.043927.3.579.2.462 Unknown [id number] 2.16.840.1.877425.3.579.2.462 Unknown [id number] 2.16.840.1.051821.3.579.2.462 Unknown [id number] 2.16.840.1.598827.3.579.2.462 Social History Date Type Detail Facility Start: 07-02-2018 End: 07-16-2018 Tobacco smoking status NHIS Current some day smoker [facility] Start: 07-02-2018 End: 07-16-2018 Cigarettes smoked current (pack per day) - Reported [facility] Start: 07-02-2018 Alcohol Comment rarely [facility] Sex Assigned At Not on file [facility] Start: 07-16-2018 Tobacco use and exposure Never used [facility] Start: 07-16-2018 Alcohol intake Current drinke r of alcohol (finding) [facility] Tobacco smoking consumption unknown [facility] Start: 10-23-2022 [facility] Start: 04-16-2024 Sex Female (finding) [facility] Start: 1955 Sex Assigned At Female [facility] Sex Female [facility] Medical Equipment Procedure Code Equipment Code Equipment Origin al Text Equipment Identifier Dates Repair, hernia, ventral or umbilical, laparoscopic ([id number]) Extra-gynaecologic al surgical mesh, composite-polymer [id number] FDA Start: 10-27-2022 Repair, hernia, ventral or umbilical, laparoscopic Endoscopic manual linear stapler [id number] FDA Start: 10-27-2022 Radiology Diagnostic study note 10-23-2024 Note Date & Type Note Facility 10-23-2024 Radiology Diagnostic study note [facility] Imaging Services [address] [place], [place] [address] Knee 4 or More Views MR#: [id number] Acct: [id number] Name: KORIN MCKENNA Rep #: [id number] : 1955 F 69 From: Deandre Davies MD PCP: SANDRA Temple Status: REG CLI Study:Knee 4 or More Views Date of Exam: 10/21/24 Exam# [id number] Ordering Dr: Sa мария Palencia TECHNICAL IMPLEMENTATION LEAD-Abbi PROCEDURE: KNEE 4 OR MORE VIEWS 10/21/2024 REASON FOR EXAM: SWELLING TECHNIQUE: Procedure Code: RADKN Modality: DX Procedure: KNEE 4 OR MORE VIEWS Laterality: Right knee COMPARISON: None FINDINGS: Bones: No fracture. No suspicious bone lesion. Joints: Mild degree of joint space narrowing of the medial compartment knee joint. Marked degree of joint space narrowing and degenerative changes at the patellofemoral joint. Effusion: No effusion. Soft tissues: Diffuse soft tissue swelling Other: RAD/Knee 4 or More Views IMPRESSION: Degenerative changes. Diffuse soft tissue swelling. Reading Location: [place] [address] CC: TECHNICAL IMPLEMENTATION LEADShawn Venegas; TECHNICAL IMPLEMENTATION LEADShawn Pugh Newspaper Delivery Driver: Signed [facility] Radiology Diagnostic study note 10-23-2024 Note Date & Type Note Facility 10-23-2024 Radiology Diagnostic study note [facility] Imaging Services [address] [place] [address] Knee 4 or More Views MR#: [id number] Acct: [id number] Name: KORIN MCKENNA Rep #: [id number] : 1955 F 69 From: Deandre Davies MD PCP: SANDRA Temple Status: REG CLI Study:Knee 4 or More Views Date of Exam: 10/21/24 Exam# [id number] Ordering Dr: Sa мария Palencia PROCEDURE: KNEE 4 OR MORE VIEWS 10/21/2024 REASON FOR EXAM: SWELLING TECHNIQUE: Procedure Code: RADKN Modality: DX Procedure: KNEE 4 OR MORE VIEWS Laterality: Left knee COMPARISON: None FINDINGS: Bones: No fracture. No suspicious bone lesion. Joints: Mild degree of joint space narrowing of the medial compartment of the knee joint as well as the patellofemoral joint. Effusion: No effusion. Soft tissues: Diffuse soft tissue swelling. Other: RAD/Knee 4 or More Views IMPRESSION: Mild degenerative changes. Diffuse soft tissue swelling. Reading Location: [place] [address] CC: SANDRA Venegas; SANDRA Palencia ~ Newspaper Delivery Driver: Signed [facility] Radiology Diagnostic study note 04-02-2024 Note Date & Type Note Facility 04-02-2024 Radiology Diagnostic study note [facility] Imaging Services [address] [place], [place] [address] Thoracic Spine 3 Views MR#: [id number] Acct: [id number] Name: KORIN MCKENNA Rep #: [id number] : 1955 F 68 From: Deandre Davies MD PCP: SANDRA Temple Status: REG CLI Study:Thoracic Spine 3 Views Date of Exam: 04/02/24 Exam# [id number] Ordering Dr: Shekhar Vigil MD PROCEDURE: THORACIC SPINE 3 VIEWS REASON FOR EXAM: Mid back pain. Thoracic spondylosis. TECHNIQUE: Three views of the thoracic spine were obtained. COMPARISON: None. FINDINGS: Normal vertebral heights. No evidence of fracture. Mild multilevel disc space narrowing. Normal alignment. No spondylolisthesis. Demineralization of the thoracic vertebrae. RAD/Thoracic Spine 3 Views IMPRESSION: Multilevel disc space narrowing and demineralization of the lumbar vertebrae. Reading Location: [id number] CC: SANDRA Venegas; Dr. Shekhar Vigil MD ~ Newspaper Delivery Driver: Signed [facility] Evaluation note 02-15-2024 Note Date & Type Note Facility 02-15-2024 Evaluation note Diagnosis Onset Date Resolution Degenerative disc disease, lumbar acute February 14 9:15am Lumbar radiculopathy acute Manoj 2024 9:15am Osteopenia acute February 15, 2024 9:15am [facility] Work Phone: Evaluation note Note Date & Type Note Facility Evaluation note No assessment information availa ble [facility] Work Phone: Reason for referral (narrative) Note Date & Type Note Facility Reason for referral (narrative) No reason for referral information available [facility] Work Phone: Summary Purpose Family History No Family History Records Found Relationship Condition Age at Onset Recorded Date/T andrew father Hypertension Unknown Diabetes mellitus Unknown Cerebrovascular accident (CVA) Unknown Malignant neoplasm of colon Unknown mother Hypertension Unknown Malignant neoplasm of uterus Unknown Goiter Unknown Advance Directives No Advanced Directives Records FoundDocuments on File Type Date Recorded Patient Portfolio Director Expl anation Advance Directives and Livin g Will 07/02/2018 2:18 PM Documents on File Type Date Recorded Patient Portfolio Director Expl anation Advance Directives and Livin g Will 07/02/2018 2:18 PM History of Present Illness * Axel Fall MD - 07/02/2018 2:29 PM EDT [facility] [address]) [facility] [address] [facility] [id number] Name: Korin Mckenna Date:07/02/18 Allergies: Aspirin; Codeine; Latex; Naproxen; and Nsaids (non-steroidal anti-inflammatory drug) Medications: Current Outpatient Medications: albuterol 90 mcg/actuation inhaler, Inhale as needed ., Disp: , Rfl: omeprazole (PRILOSEC) 20 MG capsule, Take 20 mg by mouth as needed ., Disp: , Rfl: triamcinolone (KENALOG) 0.025 % cream, Apply topically as needed ., Disp: , Rfl: 0 Occupation:Data Unavailable Chief Complaint: Abnormal MARIUSZ lab test HPI: Korin Mckenna is a 63 y.o. female sent in consultation by TRAVEL JOURNALIST Jeanette Sandoval. The patient reports that she had an antinuclear antibody test obtained by her nurse practitioner due to the fact over the past year (or possibly 2) she had swelling of the elbows, knees and ankles. These problems started either in the summer 2018 or possibly 2017. She notes that the knees became very swollen but she never had aspirations done of his knee. She was placed on recently on prednisone and told to take Tylenol. Prednisone did help reduce the elbow swelling but not the knees or ankles.She has a.m. gel lasting hours. Her symptoms are not weather sensitive. She denies skin disease such as psoriasis. She notes that humidity does make her stiff. The patient's primary care provider didobtain an MARIUSZ which by word of mouth is positive, but we do not have the titer or pattern or lab oforigin. The patient notes that the blood work was drawn at [facility]. FAMILY HISTORY: Family patient notes that all of her relations have arthritis. Several of them, including her brother, have rheumatoid arthritis. Mother alive age 81 and father alive age 83. 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 Denies hemoptysis and sleep apnea. Denies S OB Last Chest X-Ray: Date: Cardiovascular System: _Question SC; denies hypertension, CHF, but has a heart murmur and an irregular heart rate____ Gastrointestinal System: _Denies PUD, hepatitis, nausea, vomiting, diarrhea and constipation. Has GERD___ Last G.I. X-Ray: ____ Date: ____ Rectum: _Denies rectal bleeding but did have hemorrhoids during pregnancy____ Genitourinary System: _Denies kidney stones or kidney disease___ Menstrual History: L.M.P: Endocrine System: _Denies diabetes and thyroid disease Joints: Back, Muscles and Bones: _Fractured radius and ulna of the right forearm Neuro: _Denies LOC, seizure and CVA and phlebitis Emotional Factors: Sleep (Hours): Alcohol: _Rare Coffee: Tobacco: One pack a day x50 years Industrial Exposure To: Disability: _Yes/No_ Date Stopped Working: ____ Compensation Case: __Yes\No__ Comments: Physical Exams: Gen.: _The patient is well-developed, well-nourished white female appears older than stated age. InNAD. Oriented x3 neck___ Head: _Normocephalic and atraumatic with no alopecia___ Neck: _Markedly reduced left lateral rotation and left lateral flexion. Extension is reduced. Trachea is midline___ Eyes: _EOMI, PERRLA. Sclerae anicteric and noninjected___ Nose: _No discharge, deformity or discoloration___ Heart: _Regular rate and rhythm with no murmur gallop___ Lungs: _Clear to auscultation and percussion bilaterally___ Shoulders: _Good range of motion bilaterally. Some minor pain produced in the left shoulder on internal rotation at 90 degrees abduction. No synovitis present___ Back:_Flattening of the normal thoracic curvature.____ Elbows: _The right elbow has full flexion and extension and good supination and pronation. On the left, the elbow has good flexion and extension but decreased supination._ Wrists: _Left wrist has full range of motion with no tenderness or swelling.___ Hands: _Left hand demonstrate no synovitis of the MCPs or PIPs. 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 Noted that there is muscular atrophy of the right forearm. Surgical scars present along the flexor aspect___ Hips: _Good range of motion bilaterally. Tenderness to palpation of both greater trochanters___ Knees: _Redundant tissue present. No true intra-articular fluid appreciated. Medial and lateral joint line tenderness present bilaterally. Full range of motion bilaterally with crepitus of the right knee. Increased laxity of both knees on valgus/varus stressing. Negative patellar apprehension either knee__ Ankles:_Full range of motion bilaterally with no pain produced. Nontender and with no synovitis.___ Feet: _Bilateral hallux valgus. Negative lateral squeeze test and negative toe joint swelling___ Skin: _Warm and dry with no rashes present___ Strength: Upper extremities: 5/5 strength of the deltoids, biceps and triceps.____ Lower extremities: _5/5 strength of the hip flexors, quadriceps, hamstrings, anterior tibialis and EHL muscles.___ Reflexes: _Biceps DTRs are 2+ bilaterally; infrapatellar tendon reflexes are 2+ bilaterally; Achilles tendon reflexes are 2+ bilaterally and plantar reflexes are intact.___ Assessment and Plan: 1. X-rays of both knees and the cervical spine are obtained. These x-rays were reviewed with the patient. 2. The cervical spine x-ray shows total loss of the normal lordotic curvature. Multiple levels of degenerative disc disease and spondylosis deformities are present. 3. The knee x-rays show well-maintained medial lateral joint line spaces. Mild chondrocalcinosis ispresent bilaterally. The right patellofemoral joint spaces are markedly narrowed and there are osteophytes present. [place] view show the lateral aspect of the patella to be gvsu-lo-pfzq with the femur. Impression: 1. Patient has degenerative disc disease and spondylosis deformities of the cervical spine. 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 2. However, the patient's history of bilateral elbow, knee and ankle swelling is more consistent with an inflammatory type of arthritis. Under the circumstances, rheumatoid would be a prime suspect. 3. We will obtain the appropriate lab work and have the patient return in 2 weeks time for a reportvisit. Discussed with the patient and she voices understanding. Please note: Portions of this chart may have been created with [employer] voice recognition software. Occasional wrong-word or sound-like substitutions may have occurred due to inherent limitations of the voice recognition software. Please read the chart carefully and recognize, using context, where the substitutions have occurred. documented in this encounter* Axel Fall MD - 07/16/2018 4:58 PM EDT [facility]. Name: Korin Mckenna Date:07/16/18 [id number] :1955 Allergies: Aspirin; Codeine; Latex; Naproxen; and Nsaids (non-steroidal anti-inflammatory drug) Medications: Current Outpatient Medications: albuterol 90 mcg/actuation inhaler, Inhale as needed ., Disp: , Rfl: omeprazole (PRILOSEC) 20 MG capsule, Take 20 mg by mouth as needed ., Disp: , Rfl: triamcinolone (KENALOG) 0.025 % cream, Apply topically as needed ., Disp: , Rfl: 0 Chief Complaint: Patient returns for report visit regarding polyarthritis Interim History: The patient reports that currently her right elbow is swollen. Otherwise she has had no material change in her articular condition since her last visit. She has had no major infections since her lastvisit. Interim ROS: Eyes:_Denies new ocular events but she does have bilateral macular degeneration___ Derm:_Denies new dermatologic disease____ ENT:_Denies new ear nose throat events____ Cardio:_Denies new cardiac conditions___ Pulm:_Denies new pulmonary problems____ G.I:_Denies intestinal issues Renal:_Denies new renal disorders____ Hem/Onc:__No new hematologic or oncologic diagnosis__ Interim Social History: The patient is currently caring for her father who is in the early stages of dementia. He demands agreat deal of her attention. Exams: Inspection of the right elbow does reveal swelling around the olecranon area with some erythema Interim Lab Review: Ref Range & Units 2wk ago WBC 4.50 - 11.00 K/mcL 4.91 RBC 4.00 - 5.20 M/mcL 4.47 Hemoglobin 12.0 - 16.0 g/dL 13.7 Hematocrit 36.0 - 46.0 % 41.3 MCV 80.0 - 100.0 fL 92.4 MCH 26.0 - 34.0 pg 30.6 MCHC 31.0 - 37.0 g/dL 33.2 Platelets 150 - 400 K/mcL 263 RDW - CV 11.6 - 14.8 % 13.6 MPV 9.0 - 15.5 fL 9.8 Neutrophils % 47.3 Lymphocytes % 41.8 Monocytes % 7.3 Eosinophils % 2.6 Basophils % 0.8 IG Percent % 0.20 Comment: The IG parameter is the percentage of metamyelocytes, myelocytes, and promyelocytes. Neutrophils Abs 1.70 - 7.00 K/mcL 2.32 Lymphocytes Abs 0.90 - 4.00 K/mcL 2.05 Monocytes Abs 0.30 - 0.90 K/mcL 0.36 Eosinophils Abs 0.00 - 0.50 K/mcL 0.13 Basophils Abs 0.00 - 0.30 K/mcL 0.04 IG Absolute 0.00 - 0.30 K/mcL 0.01 Nucleated RBC % 0.0 Nucleated RBC Abs 0.00 - 0.00 K/mcL 0.00 Ref Range & Units 2wk ago Rheumatoid Factor 0.0 - 14.0 IU/mL <10.0 Ref Range & Units 2wk ago Sed Rate 0 - 30 mm/hr 16 Ref Range & Units 2wk ago Hepatitis C Ab Negative Negative Ref Range & Units 2wk ago Hep B S Ab Negative Negative Ref Range & Units 2wk ago Total Protein 6.0 - 8.0 g/dL 7.2 Albumin 3.2 - 5.2 g/dL 3.8 Total Bilirubin 0.0 - 1.3 mg/dL 0.3 Bilirubin, Direct 0.0 - 0.4 mg/dL <0.1 Alkaline Phosphatase 40 - 150 U/L 66 AST 0 - 45 U/L 15 ALT 14 - 65 U/L 18 Ref Range & Units G6PD, QN, RBC 8.8 - 13.4 U/g Hb 10.1 Ref Range & Units 2wk ago AVANI Screen 0 - 19 Units 4 Ref Range & Units 2wk ago Creatinine 0.60 - 1.20 mg/dL 0.76 eGFR >=60 mL/min/1.73 m2 84 Ref Range & Units 2wk ago CRP(Inflammation) <=10.0 mg/L 3.2 Reviewed lab tests with the patient. Impression: At this point, the patient could be described as having seronegative rheumatoid arthritis. Plan: 1. Reviewed situation with the patient. I did discuss the use of Plaquenil with her. I gave her theACR monograph on Plaquenil to read. 1 of her concerns is the fact that she is allergic to many different kinds of medications including the NSAIDs. She states that since she is now currently managingher father's condition, she does not want to take a chance of a drug reaction that would keep her away from her father's side for any period of time. However after several months she expects that problem to be resolved. Also the OU macular degeneration is a concern and I did ask her to contact her ocular care physician and query him/her regarding the possibility of using Plaquenil given her current ocular status. 2. The patient would like to be able to call us in the future if she decides to go on the Plaqueniland I indicated to her that she could certainly do that. In the meantime she does find acetaminophen helpful although not completely so. She can continue to take that since she does tolerate it without adverse reactions. 3. 50% of the 15-minute office time today was spent in counseling. 4. Return to be based upon starting therapy. Please note: Portions of this chart may have been created with [employer] voice recognition software. Occasional wrong-word or sound-like substitutions may have occurred due to inherent limitations of the voice recognition software. Please read the chart carefully and recognize, using context, where the substitutions have occurred. Axel Fall MD documented in this encounter Assessments Diagnosis Pain- Primary Generalized pain Elevated antinuclear antibody (MARIUSZ) level Other and unspecified nonspecific immunological findings Diagnosis Pain Generalized pain Diagnosis Pain Generalized pain Diagnosis Rheumatoid arthritis of multiple sites with negative rheumatoid factor (HCC)- Primary Chief Complaint and Reason for Visit Chief Complaint Admit Date OSTEO January 24, 2024 10:31am LUMBAR SPINE February 15, 2024 9 :15am RM 3 February 15, 2024 9 :26am LUMBAR PAIN March 17, 2024 1:24pm THORACIC April 02, 2024 9:30am Reason for Visit Admit Date Degenerative disc disease, lumbar Januar y 2024 9:15am Lumbar radiculopathy February 15, 2024 9:15am Osteopenia February 15, 2024 9 :15am Additional Source Comments INFORMATION SOURCE (unrecogn ized section and content) DATE CREATED AUTHOR 04/02/2018 [facility] DATE CREATED AUTHOR AUTHOR'S ORGANIZ ATION 09/16/2018 [facility] DATE CREATED AUTHOR AUTHOR'S ORGANIZ ATION 09/16/2018 [facility] DATE CREATED AUTHOR AUTHOR'S ORGANIZ ATION 03/23/2021 [facility] DATE CREATED AUTHOR AUTHOR'S ORGANIZ ATION 04/12/2024 [facility] DATE CREATED AUTHOR AUTHOR'S ORGANIZ ATION 11/18/2024 [facility] Reason for Visit (unrecogniz ed section and content) Status Reason Specialty Diagnoses / Procedures Re ferred By Contact Referred To Contact Closed Rheumatology Diagnoses Elevated antinuclear antibody (MARIUSZ) level Jeanette [place], [place] [address] [facility] [address] [place] [address] Axel Fall MD [address] [place] [address] <item><item> Privacy Markings (unrecogniz ed section and content) Section Author: Hailey Suarez PROHIBITION ON REDISCLOSURE OF CONFIDENTIAL INFORMATION This notice accompanies a disclosure of information concerning a client made to you with the consent of such client. Section Author: Hailey Suarez PROHIBITION ON REDISCLOSURE OF CONFIDENTIAL INFORMATION This notice accompanies a disclosure of information concerning a client made to you with the consent of such client. Care Teams (unrecognized sec tion and content) Team Status: Active Member Role Status Dates Ginny Venegas NP TECHNICAL IMPLEMENTATION LEAD-C Primary Care Provider Active Team Status: Inactive Member Role Status Dates Ginny Venegas NP, NP-C Primary Care Provider Active Start: January 24, 2024 End: January 24, 2024 BRIANNA Romero Attending Provider Active Star t: January 24, 2024 End: January 24, 2024 BRIANNA Romero Referring Provider Active Star t: January 24, 2024 End: January 24, 2024 Team Status: Inactive Member Role Status Dates Ginny Venegas NP, NP-C Primary Care Provider Active Start: February 15, 2024 End: February 15, 2024 Ginny Venegas NP, NP-C Referring Provider Active S tart: February 15, 2024 End: February 15, 2024 BRIANNA Romero Attending Provider Active Star t: February 15, 2024 End: February 15, 2024 Team Status: Inactive Member Role Status Dates Ginny Venegas NP, NP-C Primary Care Provider Active Start: February 15, 2024 End: February 15, 2024 Dr. David Amanda MD Attending Provider Active S tart: February 15, 2024 End: February 15, 2024 Team Status: Inactive Member Role Status Dates Ginny Venegas NP, TECHNICAL IMPLEMENTATION LEAD-C Primary Care Provider Active Start: March 17, 2024 End: March 17, 2024 BRIANNA Romero Attending Provider Active Star t: March 17, 2024 End: March 17, 2024 BRIANNA Romero Referring Provider Active Star t: March 17, 2024 End: March 17, 2024 Team Status: Inactive Member Role Status Dates Ginny Venegas NP TECHNICAL IMPLEMENTATION LEAD-C Primary Care Provider Active Start: April 02, 2024 End: April 02, 2024 Dr. Shekhar Vigil MD Attending Provider Active Start: April 02, 2024 End: April 02, 2024 Dr. Shekhar Vigil MD Referring Provider Active Start: April 02, 2024 End: April 02, 2024 Team Status: Active Member Role/Relationship Status Dates Ginny Venegas NP, TECHNICAL IMPLEMENTATION LEAD-C Primary care physician Active Team Status: Inactive Member Role/Relationship Status Dates Ginny Venegas NP, NP-C Primary care physician Active Start: October 21, 2024 End: October 21, 2024 SANDRA John Attending physician Active Start: October 21, 2024 End: October 21, 2024 SANDRA John Referring Provider Active Start: October 21, 2024 End: October 21, 2024 Goals (unrecognized section and content) Goals may be documented in a n alternate sectionGoals may be documented in an alternate section FOR RECORDS PERTAINING TO PATIENTS WHO ARE OR HAVE BEEN ENROLLED IN A CHEMICAL DEPENDENCY/SUBSTANCEABUSE PROGRAM, SOME INFORMATION MAY BE OMITTED. This clinical summary was aggregated from multiple sources. Caution should be exercised in using it in the provision of clinical care. This summary normalizes information from multiple sources, and as a consequence, information in this document may materially change the coding, format and clinical context of patient data. In addition, data may be omitted in some cases. CLINICAL DECISIONS SHOULD BE BASED ON THE PRIMARY CLINICAL RECORDS. [facility] provides no warranty or guarantee of the accuracy or completeness of information in this document.
--- OUTSIDE RECORDS SUMMARY | 2024-11-26 08:17 | XMS RPT_ITS | CCD ---
Author Organization [facility] Care Team Providers Care Test Automation Architect Name Role Phone Jeanette Sandoval Primary Care [...] Care Unavailable Jeanette Sandoval Primary Care Provider [phone] Jeanette Sandoval Unavailable Kezia Gonzalez Unavailable Unavailable TOMASZ FERNANDEZ Attending Unavailable TOMASZ FERNANDEZ Primary Care Unavailable TOMASZ FERNANDEZ Admitting Unavailable JEANETTE SANDOVAL ORGANIZATIONAL PSYCHOLOGIST Consulting Unavailable PROVIDER, UNKNOWN Consulting Unavailable PROVIDER, UNKNOWN Consulting Unavailable JEANETTE SANDOVAL ORGANIZATIONAL PSYCHOLOGIST Consulting Unavailable GINNY VENEGAS Attending Unavailable GINNY VENEGAS Primary Care Unavailable GINNY VENEGAS Admitting Unavailable PROVIDER, UNKNOWN Consulting Unavailable PROVIDER, UNKNOWN Consulting Unavailable Manuel CITY ATTORNEY-C, Ginny Primary Care Provider Tomasz Bruce Attending Provider Tomasz Bruce Referring Provider Manuel CITY ATTORNEY-C, Ginny Referring Provider Vasiliy SORENSON, Dr. Hernandez Attending Provider [phone] Musa SORENSON, Dr. Corrigan Attending Provider Dr. Shekhar Vigil MD Referring Provider Manuel CITY ATTORNEY-C, Ginny Primary Care Physician [phone] Talha CITY ATTORNEY-C, Vy Amor Attending Physician Talha CITY ATTORNEY-C, Vy Amor Referring Provider [phone] Manuel CITY ATTORNEY, Ginny Primary Care Unavailable Manuel CITY ATTORNEY, Ginny Referring Unavailable Gaston Ellis Attending Unavailable Manuel CITY ATTORNEY, Ginny Primary Care Unavailable Manuel CITY ATTORNEY, Ginny Referring Unavailable Karthik Tomasz Attending Unavailable Manuel CITY ATTORNEY, Ginny Primary Care Unavailable David Amanda Attending Unavailable Manuel CITY ATTORNEY, Ginny Referring Unavailable Manuel CITY ATTORNEY, Ginny Primary Care Unavailable Karthik Tomasz Attending Unavailable David Amanda Attending Unavailable Manuel CITY ATTORNEY, Ginny Primary Care Unavailable Vy Palencia Attending Unavailabl Vy Morrissey Referring Unavailabl e Manuel CITY ATTORNEY, Ginny Primary Care Unavailable Manuel CITY ATTORNEY, Ginny Primary Care Unavailable Karthik, Tomasz Attending Unavailable Karthik, Tomasz Referring Unavailable Vy Palencia Referring Unavailjeff Venegas CITY ATTORNEY, Ginny Primary Care Unavailable Vy Palencia Attending Unavailabl e Manuel CITY ATTORNEY, Ginny Primary Care Unavailable Karthik, Tomasz Attending Unavailable Karthik, Tomasz Referring Unavailable Shekhar Vigil Referring Unavailable Manuel CITY ATTORNEY, Ginny Primary Care Unavailable Shekhar Vigil Attending Unavailable Allergies Allergy Classification Reported Allergen(s) Allergy Type Date of Onset Reaction(s) Facility (11 sources) Aspirin; Translations: [Unknown] Drug Allergy 9 Rash, Other [facility] Comment on above: racing heart (9 sources) Codeine Drug Allergy 9 Arrhythmia, Other [facility] Comment on above: hallucinations, not feel well (10 sources) Latex; Translations: [LATEX] Propensity to adverse reactions to drug 9 HIVE [facility] (7 sources) Naproxen Drug Allergy 9 Rash [facility] (5 sources) NSAIDs Propensity to adverse reactions to drug 9 [facility] (4 sources) Ibuprofen Drug Allergy 5 Rash, Hives [facility] (1 source) Aspirin Drug Allergy [facility] (1 source) Codeine Drug Allergy [facility] (1 source) Naproxen Drug Allergy [facility] (1 source) NSAID Drug allergy (disorder) [facility] (2 sources) Ciprofloxacin Drug Allergy 5 [facility] (3 sources) Soy protein; Translations: [soy] Allergy to substance 5 [facility] (1 source) Aspirin Drug Allergy 5 [facility] (1 source) Ciprofloxacin Drug Allergy 5 [facility] (1 source) Codeine Drug Allergy 5 [facility] (1 source) Ibuprofen Drug Allergy 5 [facility] (1 source) Latex Drug allergy (disorder) 5 [facility] (1 source) Naproxen Drug Allergy 5 [facility] Medications Current Medications Medication Drug Class(es) Dates Sig (Normalized) Sig (Original) [id number] 200 actuat albuterol 0.09 mg/actuat metered dose [...] December 17, 2023 9:50am Start: 03-28-2018 omeprazole (GA ILOSEC) 20 MG capsule Take 20 mg [...] Viewson 10-21 Knee 4 or More Views [facility] [address] [place] [address] Knee 4 or More Views MR#: [id number] Acct: [id number] Name: KORIN MCKENNA Rep #: [id number] : 1955 F 69 From: Marcos arreola MD PCP: SANDRA Temple Status: REG CLI Study: Knee 4 or More Views Date of Exam: 10/21/24 Exam# [id number] Ordering Dr: Vy Palencia CITY ATTORNEY-C PROCEDURE: KNEE 4 OR MORE VIEWS 10/21/2024 [...] changes. Diffuse soft tissue swelling. Reading Location: [facility] CC: SANDRA Venegas; SANDRA Palencia Flight Service Specialist: Signed Normal [facility] Knee 4 or More Views [facility] Services [address] [place] [address] Knee 4 or More Views MR#: [id number] Acct: [id number] Name: OKRIN MCKENNA Rep #: [id number] : 1955 F 69 From: Marcos arreola MD PCP: SANDRA Temple Status: REG CLI Study: Knee 4 or More Views Date of Exam: 10/21/24 Exam# [id number] Ordering Dr: Vy Palencia PROCEDURE: KNEE 4 [...] changes. Diffuse soft tissue swelling. Reading Location: [facility] CC: SANDRA Venegas; SANDRA Palencia Flight Service Specialist: Signed Normal [facility] CBC + DIFFon 04-10-2024 Baso # 0.02 x10EE3/UL Normal 0.00 - 0.10 [facility] Comment on above: Performed By: #### 2 17157 #### [facility],[address] [place] [address] 86075 Basophils/100 WBC (Bld) 0.3 % Normal 0.0 - 2.0 [facility] Comment on above: Performed By: #### 2 91270 #### [facility],[address] [place] [address] CBC + DIFF Normal [facility] Comment on above: Result Comment: CBC- COMPLETE BLOOD COUNT Performed By: #### 2 75599 #### [facility],[address] [place] [address] EO # 0.11 x10EE3/UL Normal 0.00 - 0.50 [facility] Comment on above: Performed By: #### 2 04623 #### [facility],[address] [place] [address] 46403 Eosinophils/100 WBC (Bld) 2.1 % Normal 0.0 - 7.0 [facility] Comment on above: Performed By: #### 2 19791 #### [facility],[address] [place], [place] [id number] Erythrocyte distribution width (RBC) [Ratio] 13.6 % Normal 12.0 - 15.6 [facility] Comment on above: Performed By: #### 2 93411 #### [facility],[address] [place] [address] Hematocrit (Bld) [Volume fraction] 42.6 % Normal 34.0 - 46.0 [facility] Comment on above: Performed By: #### 2 69236 #### [facility],[address] [place] [address] 34821 Hemoglobin (Bld) [Mass/Vol] 14.7 g/dL Normal 12.0 - 16.0 [facility] Comment on above: Performed By: #### 2 92813 #### [facility],[address] [place] [address] 00938 Lymph # 1.76 x10EE3/UL Normal 0.80 - 2.80 [facility] Comment on above: Performed By: #### 2 75965 #### [facility],[address] [place] [address] 35040 Lymphocytes/100 WBC (Bld) 34.2 % Normal 20.0 - 45.0 [facility] Comment on above: Performed By: #### 2 83248 #### [facility],[address] [place] [address] 03618 MANUAL DIFF N/A Normal [facility] Comment on above: Performed By: #### 2 09491 #### [facility],[address] [place] [address] MCH (RBC) [Entitic mass] 31 pg Normal 27 - 33 [facility] Comment on above: Performed By: #### 2 26829 #### [facility],[address] [place] [address] MCHC 35 X10 3 Normal 32 - 36 [facility] Comment on above: Performed By: #### 2 98994 #### [facility],[address] [place], [place] [address] MCV (RBC) [Entitic vol] 89 fL Normal 80 - 99 [facility] Comment on above: Performed By: #### 2 06864 #### [facility],[address] [place] [address] 88047 [place] # 0.38 x10EE3/UL Normal 0.20 - 1.00 [facility] Comment on above: Performed By: #### 2 00852 #### [facility],[address] [place] [address] 88009 MONOS % 7.3 % Normal 0.0 - 10.0 [facility] Comment on above: Performed By: #### 2 36858 #### [facility],[address] [place] [address] 64874 Morphology Jadon (Bld) [Interp] N/A Normal [facility] Comment on above: Performed By: #### 2 70909 #### [facility],[address] [place] [address] 52311 Neut # 2.89 x10EE3/UL Normal 1.50 - 7.10 [facility] Comment on above: Performed By: #### 2 40415 #### [facility],[address] [place] [address] 75038 Neutrophils/100 WBC (Bld) 56.1 % Normal 46.0 - 76.0 [facility] Comment on above: Performed By: #### 2 60544 #### [facility],[address] [place] [address] 11793 PLATELET 315 x10EE3/UL Normal 150 - 450 [facility] Comment on above: Performed By: #### 2 54124 #### [facility],[address] [place] [address] 11744 Platelet mean volume (Bld) [Entitic vol] 7.4 fL Normal 6.6 - 10.5 [facility] Comment on above: Result Comment: AUTO MATED DIFFERENTIAL Performed By: #### 2 19539 #### [facility],[address] [place] [address] 16854 RBC 4.77 x 10EE6/UL Normal 4.10 - 5.30 [facility] Comment on above: Performed By: #### 2 76167 #### [facility],[address] [place] [address] 44384 WBC 5.2 x 10EE3/UL Normal 4.5 - 10.8 [facility] Comment on above: Performed By: #### 2 68029 #### [facility],[address] [place] [address] 89175 CMP with eGFRon 04-10-2024 AGE 68 years Normal [facility] Comment on above: Performed By: #### 2 95245 #### [facility],[address] [place] [address] 58910 Albumin [Mass/Vol] 3.6 g/dL Normal 3.4 - 5.0 [facility] Comment on above: Performed By: #### 2 88639 #### [facility],[address] [place] [address] 86307 Albumin/Globulin [Mass ratio] 1.2 {ratio} Normal 0.9 - 1.6 [facility] Comment on above: Performed By: #### 2 58315 #### [facility],[address] [place] [address] 07341 ALK PHOS 73 U/L Normal 46 - 116 [facility] Comment on above: Performed By: #### 2 94957 #### [facility],[address] [place] [address] 07118 ALT [Catalytic activity/Vol] 23 U/L Normal 16 - 63 [facility] Comment on above: Performed By: #### 2 84734 #### [facility],[address] [place] [address] 35342 Anion gap [Moles/Vol] 10 mmol/L Normal 10 - 20 [facility] Comment on above: Performed By: #### 2 26733 #### [facility],[address] [place] [address] 94071 AST [Catalytic activity/Vol] 14 U/L Normal 13 - 39 [facility] Comment on above: Performed By: #### 2 73093 #### [facility],[address] [place] [address] 30903 B/C RATIO 22 ratio Normal 0 - 30 [facility] Comment on above: Performed By: #### 2 76654 #### [facility],[address] [place] [address] 86467 Bilirubin [Mass/Vol] 0.3 mg/dL Normal 0.2 - 1.0 [facility] Comment on above: Performed By: #### 2 18186 #### [facility],[address] [place] [address] 36479 Calcium [Mass/Vol] 9.1 mg/dL Normal 8.5 - 10.1 [facility] Comment on above: Performed By: #### 2 70862 #### [facility],[address] [place] [address] 54190 Chloride [Moles/Vol] 105 mmol/L Normal 98 - 107 [facility] Comment on above: Performed By: #### 2 14892 #### [facility],[address] [place] [address] 21225 CMP with eGFR Normal [facility] Comment on above: Result Comment: COMP REHENSIVE METABOLIC PANEL Performed By: #### 2 77002 #### [facility],[address] [place] [address] 13117 CO2 [Moles/Vol] 31.0 mmol/L Normal 21.0 - 32.0 [facility] Comment on above: Performed By: #### 2 60138 #### [facility],[address] [place] [address] 52705 Creatinine [Mass/Vol] 0.78 mg/dL Normal 0.55 - 1.02 [facility] Comment on above: Performed By: #### 2 79939 #### [facility],[address] [place] [address] 30752 GFR/1.73 sq M.predicted among non-blacks MDRD (S/P/Bld) [Vol rate/Area] mL/min/{1.73_m2} Normal 60 - 999 [facility] Comment on above: Performed By: #### 2 13657 #### [facility],[address] [place] [address] 03845 Result Comment: ACCO RDING TO THE NATIONAL KIDNEY DISEASE EDUCATION PROGRAM(NKDE), A NORMAL eGFR IS A VALUE GREATER THAN OR EQUAL TO 60 ML/MIN/1.73 SQ METERS. CHRONIC KIDNEY DISEASE: <60mL/MIN/1.73 SQ METERS KIDNEY FAILURE: <15mL/MIN/1.73 SQ METERS THIS TEST SHOULD ONLY BE USED FOR PATIENTS 18 YEARS OF AGE AND OLDER. Globulin (S) [Mass/Vol] 2.9 g/dL Normal 1.5 - 3.8 [facility] Comment on above: Performed By: #### 2 43507 #### [facility],[address] [place] [address] 25951 Glucose [Mass/Vol] 93 mg/dL Normal 74 - 106 [facility] Comment on above: Performed By: #### 2 84934 #### [facility],[address] [place] [address] 53293 Potassium [Moles/Vol] 4.2 mmol/L Normal 3.5 - 5.1 [facility] Comment on above: Performed By: #### 2 19009 #### [facility],[address] [place] [address] 65879 Protein [Mass/Vol] 6.5 g/dL Normal 6.4 - 8.2 [facility] Comment on above: Performed By: #### 2 24411 #### [facility],[address] [place] [address] 02695 Sodium [Moles/Vol] 142 mmol/L Normal 136 - 145 [facility] Comment on above: Performed By: #### 2 14914 #### [facility],[address] [place] [address] 18761 Urea nitrogen [Mass/Vol] 17 mg/dL Normal 7 - 18 [facility] Comment on above: Performed By: #### 2 93843 #### [facility],[address] [place] [address] 27917 LIPID PROFILEon 04-10-2024 Cholesterol [Mass/Vol] 217 mg/dL Normal 0 - 240 [facility] Comment on above: Performed By: #### 2 25080 #### [facility],[address] [place] [address] 31693 Cholesterol in HDL [Mass/Vol] 49 mg/dL Normal 40 - 60 [facility] Comment on above: Performed By: #### 2 83544 #### [facility],[address] [place] [address] 54603 Cholesterol in LDL [Mass/Vol] 149 mg/dL High 0 - 129 [facility] Comment on above: Performed By: #### 2 17338 #### [facility],[address] [place] [address] 51530 Cholesterol.total /Cholesterol in HDL [Mass ratio] 4.4 {ratio} Normal 0.0 - 5.0 [facility] Comment on above: Performed By: #### 2 61213 #### [facility],[address] [place] [address] 26250 Lipid 1996 panel Normal [facility] Comment on above: Result Comment: LIPI D PROFILE Performed By: #### 2 62992 #### [facility],[address] [place] [address] 66162 Triglyceride [Mass/Vol] 95 mg/dL Normal 0 - 150 [facility] Comment on above: Performed By: #### 2 78194 #### [facility],[address] [place] [address] 75618 VITAMIN D, 25 HYDROXYon 03-0 VitD 12.10 ng/mL Low 30.00 - 100 [facility] Comment on above: Result Comment: 25-O [...] D2 Not Established Performed By: #### 2 20728 #### [facility],[address] [place] [address] 45828 Thoracic Spine 3 Viewson Thoracic Spine 3 Views [facility] Imaging Services [address] [place] [address] Thoracic Spine 3 Views MR#: [id number] Acct: [id number] Name: KORIN MCKENNA Rep #: [id number] : 1955 F 68 From: Marcos arreola MD PCP: SANDRA Temple Status: REG CLI Study: Thoracic Spine 3 Views Date of Exam: 04/02/24 Exam# [id number] Ordering Dr: Shekhar Vigil MD PROCEDURE: THORACIC [...] the lumbar vertebrae. Reading Location: [facility] CC: CITY ATTORNEY-C Ginny Venegas; Dr. Shekhar Vigil MD Flight Service Specialist: Signed Normal [facility] Orthopedic Visit Reporton Orthopedic Visit Report [facility] [address] [place] [address] OFFICE VISIT Date of Service: 02/15/24 MR#: [id number] Acct: [id number] Name: KORIN MCKENNA Rep #: [id number] : 1955 Provider: BRIANNA Romero Age/Sex: 68/F [place] [facility] Status: Signed Intake Vital Signs 12/17/23 08:49 [...] lower extremity (more content not included)... Normal [facility] Wrist min 3 Viewson 02-14-19 25 Wrist min 3 Views [facility] [address] [place] [address] Wrist min 3 Views MR#: [id number] Acct: [id number] Name: KORIN MCKENNA Rep #: [id number] : 1955 68 From: Andrew Watson MD PCP: SANDRA Temple Status: DEP AMB Study: Wrist min 3 Views Date of Exam: 02/15/24 Exam# [id number] Ordering Dr: Tomasz Fernandez [id number] STUDY: X-RAY - RIGHT WRIST REASON FOR [...] 16:12 EST Reading Location ID and State: [address] [place] [address] , Service support , CC: SANDRA Venegas; BRIANNA Romero Flight Service Specialist: Signed Normal [facility] Dexa Bone Density Studyon Dexa Bone Density Study [facility] [address] [place], [place] [id number] Dexa Bone Density Study MR#: [id number] Acct: [id number] Name: KORIN MCKENNA Rep #: [id number] : 1955 68 From: Marcos arreola MD PCP: SANDRA Temple Status: REG CLI Study: Dexa Bone Density Study Date of Exam: 01/24/24 Exam# [id number] Ordering Dr: Tomasz Fernandez [id number] STUDY: DUAL ENERGY X-RAY ABSORPTIOMETRY / DXA [...] EST , CC: SANDRA Venegas; BRIANNA Romero Flight Service Specialist: Signed Normal [facility] L/S Spine Min 4 Views12-06 L/S Spine Min 4 Views [facility] [address] [place] [address] L/S Spine Min 4 Views MR#: [id number] Acct: [id number] Name: KORIN MCKENNA Rep #: [id number] : 1955 F 68 From: Trey Ascencio MD PCP: SANDRA Temple Status: DEP AMB Study: L/S Spine Min 4 Views Date of Exam: 12/17/23 Exam# [id number] Ordering Dr: Tomasz Fernandez [id number] STUDY: X-RAY - LUMBAR SPINE REASON FOR [...] EST , CC: SANDRA Venegas; BRIANNA Romero Flight Service Specialist: Signed Normal [facility] Orthopedic Visit Reporton Orthopedic Visit Report [facility] [address] [place] [address] [address] [place] [address] OFFICE VISIT Date of Service: 12/17/23 MR#: [id number] Acct: [id number] Name: KORIN MCKENNA Rep #: [id number] : 1955 Provider: BRIANNA Romero Age/Sex: 68/F Location[place] [facility] Status: Signed Intake Vital Signs 12/04/23 09:33 [...] hand, particul (more content not included)... Normal [facility] Surgery Visit Reporton 12-03 Surgery Visit Report [facility] [address] [place] [address] OFFICE VISIT Date of Service: 12/04/23 MR#: [id number] Acct: [id number] Name: KORIN MCKENNA Rep #: [id number] : 1955 Provider: Dr. Gaston blankenship MD Age/Sex: 68/F Location: [facility] Status: Signed Intake Vital Signs 10/27/22 [...] left fl (more content not included)... Normal [facility] Provider Note - ED v3on 03-08 Provider [...] SIGNS: T PRBP SpO2O2(LPM) %FiO2 Method 18-Mar-2021 15:52:00-36.65892186/88 96 MDM MDM/ED COURSE: This note was [...] changes position without any instability/reported dizziness. Integumentary: [place], warm, dry, and Intact. Normal skin turgor; [...] indicate she (more content not included)... Normal [facility] Provider Note - ED v3on 02-05 Provider [...] SIGNS: T PRBP SpO2O2(LPM) %FiO2 Method 18-Feb-2021 14:37:00-36.12494520/80 95 MDM MDM/ED COURSE: This note was [...] and changes position without any instability. Integumentary: [place], warm, dry, and Intact. Normal skin turgor; [...] Problems ad (more content not included)... Normal [facility] BUNon 07-02-2018 Urea nitrogen mass conc 11 mg/dL 8 - 25 mg/dL [facility] CRP, Inflammationon 07-03-19 19 CRP mass conc 3.2 mg/L <=10.0 [facility] Creatinine, serumon 07-03-19 19 Creatinine mass conc 0.76 mg/dL 0.6 - 1.2 mg/dL [facility] GFR/1.73 sq M predicted among non-blacks MDRD vol rate/area (S/P/Bld) The eGFR should be used for monitoring renal function only and not for medication dosing. [facility] GFR/1.73 sq M.predicted CKD-EPI vol rate/area (S/P/Bld) 84 >=60 mL/min/1.73 m2 [facility] Hepatic Function Panelon Albumin mass conc 3.8 g/dL 3.2 - 5.2 g/dL [facility] ALP enzyme act/vol 66 U/L 40 - 150 U/L [facility] ALT enzyme act/vol 18 U/L 14 - 65 U/L [facility] AST enzyme act/vol 15 U/L 0 - 45 U/L [facility] Bilirubin mass conc 0.3 mg/dL 0 - 1.3 mg/dL [facility] Bilirubin.conjuga jhoan mass conc mg/dL 0 - 0.4 mg/dL [facility] Protein mass conc 7.2 g/dL 6 - 8 g/dL [facility] lth Otheron 07-02-2018 Interpretation and review of laboratory results Normal [facility] Interface, Rad In Fu ji Speechq [...] Degenerative changes. No acute osseous abnormality identified. [employer] Workstation ID: [id number] [facility] EXAMINATION: XR KNEE S BILATERAL 3 [...] study. The adjacent soft tissues are unremarkable. [facility] Degenerative changes . No acute osseous abnormality identified. [employer] Workstation ID: [id number] [facility] Sedimentation Rateon 019 ESR Velocity (Bld) 16 mm/h [facility] Interpretation and review of laboratory results Normal [facility] XR CERVICAL SPINE AP/LATon 0 07-02-2018 [...] degenerative disc changes at C4-5 through C6-7. /[facility] Workstation ID: [id number] Dictated by: ADEEL GRANADO on SunJuly 03, 2018 9:12:25 AM EDT Transcribed by: ISAI FERRER on SunJuly 03, 2018 9:42:58 AM EDT Finalized by: ADEEL GRANADO on SunJuly 03, 2018 6:00:39 PM EDT [facility] Comment on above: Order Comment: Reaso n [...] Degenerative changes. No acute osseous abnormality identified. [facility] [place] Workstation ID: [id number] Dictated by: JAVID BARBER on SunJuly 02, 2018 4:35:07 PM EDT Transcribed by: DEMETRIO SUTTON IN [employer] SPEECHQ on SunJuly 02, 2018 4:40:34 PM EDT Finalized by: JAVID BARBER on SunJuly 02, 2018 5:36:52 PM EDT [facility] Comment on above: Order Comment: AP, l ateral and sunrise views weightbearing. Reason for exam?:Bilateral Knee pain, Rt worse than Lt. no injury, trauma, or prev. surgery Injury/Trauma or Illness?:Illness/Other How long have you had these symptoms (acute/chronic)?:Chronic History of cancer?:un Surgeries, chemotherapy, or radiation?:un Type of Exam?:Unknown Additional signs and symptoms?:un MARIUSZ by IFAon 04-02-2018 MARIUSZ Pattern SPCK Normal [facility] MARIUSZ Titer D320 Abnormal Negative [facility] Nuclear Ab IF titer (S) Positive Abnormal Negative [facility] Rheumatoid Factoron 03-30-19 19 Rheumatoid Factor <10 Normal <16 [facility] Vital Signs Date Time Vital Sign Value Performing Clinician Facility 03-18-2021 17:52-0500 Body height 160 cm Jeanette Sandoval Other Phone: [facility] 03-18-2021 17:52-0500 Body temperature 97.52 [degF] Jeanette Sandoval Other Phone: [facility] 03-18-2021 17:52-0500 Diastolic blood pressure 88 mm[Hg] Jeanette Sandoval Other Phone: [facility] 03-18-2021 17:52-0500 Heart rate 99 /min Jeanette Sandoval Other Phone: [facility] 03-18-2021 17:52-0500 Respiratory rate 16 /min Jeanette Sandoval Other Phone: [facility] 03-18-2021 17:52-0500 SaO2% (BldA) [Mass fraction] 96 % Jeanette Sandoval Other Phone: [facility] 03-18-2021 17:52-0500 Systolic blood pressure 134 mm[Hg] Jeanette Sandoval Other Phone: [facility] 02-18-2021 16:37-0500 Body height 162.5 cm Jeanette Sandoval Other Phone: [facility] 02-18-2021 16:37-0500 Body temperature 97.88 [degF] Jeanette Sandoval Other Phone: [facility] 02-18-2021 16:37-0500 Diastolic blood pressure 80 mm[Hg] Jeanette Sandoval Other Phone: [facility] 02-18-2021 16:37-0500 Heart rate 81 /min Jeanette Sandoval Other Phone: [facility] 02-18-2021 16:37-0500 Respiratory rate 16 /min Jeanette Sandoval Other Phone: [facility] 02-18-2021 16:37-0500 SaO2% (BldA) [Mass fraction] 95 % Jeanette Sandoval Other Phone: [facility] 02-18-2021 16:37-0500 Systolic blood pressure 138 mm[Hg] Jeanette Sandoval Other Phone: [facility] 07-16-2018 14:47-0400 BMI (Body Mass Index) 29.7 kg/m2 [facility] 07-16-2018 14:47-0400 Body weight 78.47 kg [facility] 07-16-2018 14:47-0400 BP Diastolic 81 mm[Hg] [facility] 07-16-2018 14:47-0400 BP Systolic 127 mm[Hg] [facility] 07-16-2018 14:47-0400 Pulse (Heart Rate) 97 /min [facility] 07-02-2018 13:08-0400 BMI (Body Mass Index) 29.76 kg/m2 [facility] 07-02-2018 13:08-0400 BP Diastolic 74 mm[Hg] [facility] 07-02-2018 13:08-0400 BP Systolic 125 mm[Hg] [facility] 07-02-2018 13:08-0400 Height 162.6 cm [facility] 07-02-2018 13:08-0400 Pulse (Heart Rate) 80 /min [facility] 07-02-2018 13:08-0400 Weight 78.65 kg Axel [facility] Encounters Encounter Date Encounter Type Care Provider Facility Start: 11-26-2024 ambulatory Vy Palencia Fa cility:[facility] Start: 10-21-2024 End: 10-21-2024 ambulatory Ginny Venegas [facility]-C Work Phone: -Radiology [facility] Start: 10-21-2024 End: 10-21-2024 Patient encounter procedure Vy Palencia [facility]-C -Radiology [facility] Work Phone: Start: 10-21-2024 End: 10-21-2024 ambulatory Vy Palencia Facility:[facility] Start: 04-10-2024 End: 04-10-2024 ambulatory JEANETTE [facility] Start: 04-02-2024 Encounter for genera l adult medical examination without abnormal findings Tomasz Fernandez [facility] Start: 04-02-2024 End: 04-02-2024 ambulatory Ginny Venegas [facility] Work Phone: [facility] Work Phone: Start: 04-02-2024 End: 04-02-[address] Shekhar Vigil MD -Radiology, [facility] Work Phone: Start: 04-02-2024 End: 04-02-2024 ambulatory Shekhar Vigil Facility:[facility] Start: 03-17-2024 End: 03-17-2024 Patient encounter procedure Tomasz REED -MRI - [facility] Work Phone: Start: 03-17-2024 End: 03-17-2024 ambulatory Ginny Venegas NP Facility:[facility] Start: 02-15-2024 End: 02-15-2024 Patient encounter procedure Tomasz REED -[facility] Work Phone: Start: 02-15-2024 End: 02-15-2024 ambulatory Ginny Venegas CITY ATTORNEY [facility] Start: 01-24-2024 End: 01-24-2024 Patient encounter procedure Tomasz REED -Outpatient Bone Densitometry Work Phone: Start: 01-24-2024 End: 01-24-2024 ambulatory Ginny Venegas CITY ATTORNEY Facility:[facility] Start: 12-24-2023 End: 02-04-2024 ambulatory TOMASZ FERNANDEZ [facility] Start: 12-17-2023 End: 12-17-2023 ambulatory Ginny Venegas [facility] ATTORNEY Facility:[facility] Start: 12-04-2023 End: 12-04-2023 ambulatory Ginny Venegas CITY ATTORNEY Facility:[facility] Start: 03-18-2021 End: 03-18-2021 Emergency department patient visit Kezia Gonzalez [facility] Start: 02-18-2021 End: 02-18-2021 Emergency department patient visit Kezia Gonzalez [facility] Start: 04-08-2020 End: 04-08-2020 Orders Only Leeanne Magaña Work Phone: [facility] Start: 09-09-2018 Patient encounter procedure [facility] Start: 07-16-2018 End: 07-16-2018 Patient encounter procedure [facility] Start: 07-16-2018 End: 07-16-2018 Office outpatient visit 15 minutes Axel [facility] Work Phone: [facility] Comment on above: Rheumatoid arthritis of multiple sites with negative rheumatoid factor (HCC) (Primary Dx) Start: 07-08-2018 Patient encounter procedure [facility] Start: 07-02-2018 End: 07-06-2018 Patient encounter procedure [facility] Start: 07-02-2018 End: 07-02-2018 Patient encounter procedure [facility] Work Phone: [facility] Comment on above: Pain Start: 07-02-2018 End: 07-02-2018 Office outpatient new 45 minutes Jeanette Sandoval Work Phone: [facility] Comment on above: Pain (Primary Dx); Elevated antinuclear antibody (MARIUSZ) level Procedures Date Procedure Procedure Detail Performing Clinician Start: 10-21-2024 Radiologic exam knee complete 4/more views Ginny Venegas [facility]C Work Phone: Start: 04-02-2024 X-ray of thoracic sp ine, three views Ginny Venegas [facility] Work Phone: Start: 02-15-2024 Plain x-ray of wrist Bailey [facility] Work Phone: Start: 01-24-2024 Dual energy X-ray absorptiometry Ginny Venegas [facility] Work Phone: Start: 07-02-2018 Radiologic examinati on knee 3 views Axel Fall Work Phone: Plan of Treatment Date Care Activity Detail Author Start: 02-15-2024 Patient referral [facility] Work Phone: Start: 10-07-2019 Influenza vaccinatio n given Sequential Influenza Vaccine (#1) [facility] Start: 10-06-2018 Influenza vaccinatio n given SEQUENTIAL INFLUENZA VACCINE (Season Ended) [facility] Start: 07-16-2018 End: 07-16-2018 Office Visit 07/16/2018 Office Visit Orthopedic Surgery Axel Fall MD [address] [place] [id number] [facility] Start: 04-12-2005 Administration of he rpes zoster vaccine Zoster Vaccines (1 of 2) [facility] Start: 04-12-2005 Screening for malign ant neoplasm of colon [facility] Start: 1971 COVID-19 Vaccine (1 of 2) COVI D-19 Vaccine (1 of 2) [facility] Start: 04-12-1970 HIV screening HIV Screening [facility] Start: 1967 Adolescent depressio n screening assessment Depression Screening (PHQ9) [facility] Start: 04-12-1958 History and physical examination, annual for health maintenance Wellness Visit [facility] Start: 1955 Hepatitis C antibody , confirmatory test HEPATITIS C SCREENING [facility] Start: 1955 Protein mass conc Mammogram [facility] Start: 1955 Screening for malign ant neoplasm of cervix PAP SMEAR [facility] Start: 1955 Screening for malign ant neoplasm of colon Colorectal Cancer Screening: Colonoscopy [facility] Start: 1955 Screening mammography [facility] Start: 1955 Tetanus vaccination [facility] End: 07-03-2019 Anti-cyclic citrullinated peptide antibody level [facility] Antibody Lab Routine Elevated antinuclear antibody (MARIUSZ) level 1 Occurrences starting 07/02/2018 until 07/03/2019 [facility] Comment on above: 1 Occurrences starti ng 07/02/2018 until 07/03/2019 Anti-cyclic citrulli nated peptide antibody level [facility] Antibody Lab Routine Elevated antinuclear antibody (MARIUSZ) level 07/02/2018 3:13 PM EDT [facility] End: 07-03-2019 Extractable nuclear antigen antibody screening test AVANI Screen (SSA/B,SM,OPERATIONS ARCHITECT,SCL70,DORA 1) Lab Routine Elevated antinuclear antibody (MARIUSZ) level 1 Occurrences starting 07/02/2018 until 07/03/2019 [facility] Comment on above: 1 Occurrences starti ng 07/02/2018 until 07/03/2019 Extractable nuclear antigen antibody screening test AVANI Screen (SSA/B,SM,OPERATIONS ARCHITECT,SCL70,DORA 1) Lab Routine Elevated antinuclear antibody (MARIUSZ) level 07/02/2018 3:13 PM EDT [facility] End: 07-03-2019 Kovrkog-4-hvgodshpd dehydrogenase measurement, quantitative Glucose 6 Phosphate Dehydrogenase, Qn, RBC Lab Routine Elevated antinuclear antibody (MARIUSZ) level 1 Occurrences starting 07/02/2018 until 07/03/2019 [facility] Comment on above: 1 Occurrences starti ng 07/02/2018 until 07/03/2019 Hbvqrvk-7-brbzeuyqy dehydrogenase measurement, quantitative Glucose 6 Phosphate Dehydrogenase, Qn, RBC Lab Routine Elevated antinuclear antibody (MARIUSZ) level 07/02/2018 3:13 PM EDT [facility] End: 07-03-2019 Hepatitis B surface antibody measurement Hepatitis B Surface Antibody Lab Routine Elevated antinuclear antibody (MARIUSZ) level 1 Occurrences starting 07/02/2018 until 07/03/2019 [facility] Comment on above: 1 Occurrences starti ng 07/02/2018 until 07/03/2019 Hepatitis B surface antibody measurement Hepatitis B Surface Antibody Lab Routine Elevated antinuclear antibody (MARIUSZ) level 07/02/2018 3:13 PM EDT [facility] End: 07-03-2019 Hepatitis C antibody measurement Hepatitis C Antibody Lab Routine Elevated antinuclear antibody (MARIUSZ) level 1 Occurrences starting 07/02/2018 until 07/03/2019 [facility] Comment on above: 1 Occurrences starti ng 07/02/2018 until 07/03/2019 Hepatitis C antibody measurement Hepatitis C Antibody Lab Routine Elevated antinuclear antibody (MARIUSZ) level 07/02/2018 3:13 PM EDT [facility] Patient referral [facility] Work Phone: End: 07-03-2019 Radiologic examination of cervical spine, anteroposterior and lateral XR Cervical Spine AP/LAT Imaging Routine Pain 1 Occurrences starting 07/02/2018 until 07/03/2019 [facility] Comment on above: 1 Occurrences starti ng 07/02/2018 until 07/03/2019 Radiologic examinati on of cervical spine, anteroposterior and lateral XR Cervical Spine AP/LAT Imaging Routine Pain 07/02/2018 2:31 PM EDT [facility] End: 07-02-2018 Radiologic examination of cervical spine, anteroposterior and lateral XR Cervical Spine AP/LAT Imaging Routine Pain Once for 1 Occurrences starting 07/02/2018 until 07/02/2018 [facility] Comment on above: Once for 1 Occurrenc es starting 07/02/2018 until 07/02/2018 End: 07-03-2019 Rheumatoid factor, quantitative Rheumatoid factor Lab Routine Elevated antinuclear antibody (MARIUSZ) level 1 Occurrences starting 07/02/2018 until 07/03/2019 [facility] Comment on above: 1 Occurrences starti ng 07/02/2018 until 07/03/2019 Rheumatoid factor, quantitative Rheumatoid factor Lab Routine Elevated antinuclear antibody (MARIUSZ) level 07/02/2018 3:13 PM EDT [facility] End: 07-03-2019 Tuberculosis screening M. Tuberculosis by QuantiFERON Lab Routine Elevated antinuclear antibody (MARIUSZ) level 1 Occurrences starting 07/02/2018 until 07/03/2019 [facility] Comment on above: 1 Occurrences starti ng 07/02/2018 until 07/03/2019 Tuberculosis screening M. Tuberc ulosis by QuantiFERON Lab Routine Elevated antinuclear antibody (MARIUSZ) level 07/02/2018 3:13 PM EDT [facility] Payers Date Payer Category Payer Self-pay 2023 Medicaid [id number] 2023 Medicare [id number] 2018 Medicaid [facility] MANAGED [facility] MEDICAID COMMUNITY PLAN xxxxxxxxx 2018-Present xxxxxxxxx [id number] 2018 Medicaid [id number] 2018 Medicaid [employer] MANAGED MEDI CAID UHC MEDICAID COMMUNITY PLAN [id number] 2018-Present [id number] 1955 Unknown [id number] [id number] 1955 Unknown [id number] 2.16.840.1.932798.3.579.2.903 1955 Unknown [id number] 2.16.840.1.240979.3.579.2.903 1955 Unknown [id number] 2.16.840.1.619577.3.579.2.903 1955 Unknown [id number] 2.840.1.479746.3.579.2.903 1955 Unknown [id number] 2.840.1.846287.3.579.2.903 1955 Unknown [id number] 2..840.1.714271.3.579.2.903 1955 Unknown [id number] 2.16.840.1.953881.3.579.2.651 1955 Unknown [id number] 2.16.840.1.357525.3.579.2.651 Unknown Unknown [id number] 2.16.840.1.298088.3.579.2.462 Unknown [id number] 2.16.840.1.950617.3.579.2.462 Unknown [id number] 2.16.840.1.703179.3.579.2.462 Unknown [id number] 2.16.840.1.843473.3.579.2.462 Unknown [id number] 2.16.840.1.210747.3.579.2.462 Unknown [id number] 2.16.840.1.379199.3.579.2.462 Unknown [id number] 2.16.840.1.097521.3.579.2.462 Unknown [id number] 2.16.840.1.243087.3.579.2.462 Unknown [id number] 2.16.840.1.308766.3.579.2.462 Unknown [id number] 2.16.840.1.228740.3.579.2.462 Social History Date Type Detail Facility Start: 07-02-2018 End: 07-16-2018 Tobacco smoking status NHIS Current some day smoker [facility] Start: 07-02-2018 End: 07-16-2018 Cigarettes smoked current (pack per day) - Reported [facility] Start: 07-02-2018 Alcohol Comment rarely [facility] Sex Assigned At Not on file [facility] Start: 07-16-2018 Tobacco use and exposure Never used [facility] Start: 07-16-2018 Alcohol intake Current drinke r of alcohol (finding) [facility] Tobacco smoking consumption unknown [facility] Start: 10-23-2022 [facility] Start: 04-16-2024 Sex Female (finding) [facility] Start: 1955 Sex Assigned At Female [facility] Sex Female [facility] Medical Equipment Procedure Code Equipment Code Equipment Origin al Text Equipment Identifier Dates Repair, hernia, ventral or umbilical, laparoscopic ([id number]) Extra-gynaecologic al surgical mesh, composite-polymer [id number] FDA Start: 10-27-2022 Repair, hernia, ventral or umbilical, laparoscopic Endoscopic manual linear stapler [id number] [place] FDA Start: 10-27-2022 Radiology Diagnostic study note 10-23-2024 Note Date & Type Note Facility 10-23-2024 Radiology Diagnostic study note [facility] Imaging Services [address] [place], [place] [address] Knee 4 or More Views MR#: [id number] Acct: [id number] Name: KORIN MCKENNA Rep #: [id number] : 1955 F 69 From: Deandre Davies MD PCP: SANDRA Temple Status: REG CLI Study:Knee 4 or More Views Date of Exam: 10/21/24 Exam# [id number] Ordering Dr: Sa мария Palencia CITY ATTORNEY-Abbi PROCEDURE: KNEE 4 OR MORE VIEWS 10/21/2024 [...] changes. Diffuse soft tissue swelling. Reading Location: [place] [address] CC: CITY ATTORNEYShawn Venegas; CITY ATTORNEYShawn Pugh Flight Service Specialist: Signed [facility] Radiology Diagnostic study note 10-23-2024 Note Date & Type Note Facility 10-23-2024 Radiology Diagnostic study note [facility] Imaging Services [address] [place] [address] Knee 4 or More Views MR#: [id number] Acct: [id number] Name: KORIN MCKENNA Rep #: [id number] : 1955 F 69 From: Deandre Davies MD PCP: SANDRA Temple Status: REG CLI Study:Knee 4 or More Views Date of Exam: 10/21/24 Exam# [id number] Ordering Dr: Sa мария Palencia PROCEDURE: KNEE [...] changes. Diffuse soft tissue swelling. Reading Location: [place] [address] CC: SANDRA Venegas; SANDRA Palencia ~ Flight Service Specialist: Signed [facility] Radiology Diagnostic study note 04-02-2024 Note Date & Type Note Facility 04-02-2024 Radiology Diagnostic study note [facility] Imaging Services [address] [place], [place] [address] Thoracic Spine 3 Views MR#: [id number] Acct: [id number] Name: KORIN MCKENNA Rep #: [id number] : 1955 F 68 From: Deandre Davies MD PCP: SANDRA Temple Status: REG CLI Study:Thoracic Spine 3 Views Date of Exam: 04/02/24 Exam# [id number] Ordering Dr: Shekhar Vigil MD PROCEDURE: THORACIC [...] demineralization of the lumbar vertebrae. Reading Location: [id number] CC: SANDRA Venegas; Dr. Shekhar Vigil MD ~ Flight Service Specialist: Signed [facility] Evaluation note 02-15-2024 Note Date & Type Note Facility 02-15-2024 Evaluation note Diagnosis Onset Date Resolution Degenerative disc disease, lumbar acute February 14 9:15am Lumbar radiculopathy acute Manoj 2024 9:15am Osteopenia acute February 15, 2024 9:15am [facility] Work Phone: Evaluation note Note Date & Type Note Facility Evaluation note No assessment information availa ble [facility] Work Phone: Reason for referral (narrative) Note Date & Type Note Facility Reason for referral (narrative) No reason for referral information available [facility] Work Phone: Summary Purpose Family History No Family History Records Found Relationship Condition Age at Onset Recorded Date/T andrew father Hypertension Unknown Diabetes mellitus Unknown Cerebrovascular accident (CVA) Unknown Malignant neoplasm of colon Unknown mother Hypertension Unknown Malignant neoplasm of uterus Unknown Goiter Unknown Advance Directives No Advanced Directives Records FoundDocuments on File Type Date Recorded Patient Gaming Cage Cashier Expl anation Advance Directives and Livin g Will 07/02/2018 2:18 PM Documents on File Type Date Recorded Patient Gaming Cage Cashier Expl anation Advance Directives and Livin g Will 07/02/2018 2:18 PM History of Present Illness * Axel Fall MD - 07/02/2018 2:29 PM EDT [facility] [address] ([address]) [facility] [address] [facility] [id number] Name: Korin Mckenna Date:07/02/18 Allergies: Aspirin; Codeine; [...] 63 y.o. female sent in consultation by DIRECT MARKETING INTERN Jeanette Sandoval. The patient reports that she [...] that the blood work was drawn at [facility]. 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 Noted that there is muscular [...] markedly narrowed and there are osteophytes present. Kerby view show the lateral aspect of the patella to be qeck-vk-mqhg with the femur. Impression: 1. Patient has [...] this chart may have been created with [employer] voice recognition software. Occasional wrong-word or sound-like substitutions may have occurred due to inherent limitations of the voice recognition software. Please read the chart carefully and recognize, using context, where the substitutions have occurred. documented in this encounter* Axel Fall MD - 07/16/2018 4:58 PM EDT [facility]. Name: Korin Mckenna Date:07/16/18 [id number] :1955 Allergies: Aspirin; Codeine; Latex; Naproxen; and [...] this chart may have been created with [employer] voice recognition software. Occasional wrong-word or sound-like [...] section and content) DATE CREATED AUTHOR 04/02/2018 [facility] DATE CREATED AUTHOR AUTHOR'S ORGANIZ ATION 09/16/2018 [facility] DATE CREATED AUTHOR AUTHOR'S ORGANIZ ATION 09/16/2018 [facility] DATE CREATED AUTHOR AUTHOR'S ORGANIZ ATION 03/23/2021 [facility] DATE CREATED AUTHOR AUTHOR'S ORGANIZ ATION 04/12/2024 [facility] DATE CREATED AUTHOR AUTHOR'S ORGANIZ ATION 11/18/2024 [facility] Reason for Visit (unrecogniz ed section and content) Status Reason Specialty Diagnoses / Procedures Re ferred By Contact Referred To Contact Closed Rheumatology Diagnoses Elevated antinuclear antibody (MARIUSZ) level Jeanette Sandoval, [place] [address] [facility] [address] [place] [address] Axel Fall MD [address] [place] [address] <item><item> Privacy Markings (unrecogniz ed section and [...] Member Role Status Dates Ginny Venegas NP CITY ATTORNEY-C Primary Care Provider Active Team Status: Inactive [...] Member Role Status Dates Ginny Venegas NP, CITY ATTORNEY-C Primary Care Provider Active Start: March 17, 2024 End: March 17, 2024 BRIANNA Romero Attending Provider Active Star t: March 17, 2024 End: March 17, 2024 BRIANNA Romero Referring Provider Active Star t: March 17, 2024 End: March 17, 2024 Team Status: Inactive Member Role Status Dates Ginny Venegas NP CITY ATTORNEY-C Primary Care Provider Active Start: April 02, 2024 End: April 02, 2024 Dr. Shekhar Vigil MD Attending Provider Active Start: April 02, 2024 End: April 02, 2024 Dr. Shekhar Vigil MD Referring Provider Active Start: April 02, 2024 End: April 02, 2024 Team Status: Active Member Role/Relationship Status Dates Ginny Venegas NP, CITY ATTORNEY-C Primary care physician Active Team Status: Inactive [...] BE BASED ON THE PRIMARY CLINICAL RECORDS. [facility]. provides no warranty or guarantee of the accuracy or completeness of information in this document.
== END | disposition home or self-care (01) ==
PROVIDERS: PCP Nurse Practitioner Family; Referring Provider Nurse Practitioner Family; Visit Provider Nurse Practitioner Family
DX: M62.838 Other muscle spasm (principal); R60.0 Localized edema; F17.200 Nicotine dependence, unspecified, uncomplicated; R14.0 Abdominal distension (gaseous)
CPT/HCPCS: 76700; 93970

== ENCOUNTER → 2024-12-05 | Outpatient (CLI) | payer MEDICARE, SELFPAY ==
--- NOTE | 2024-12-05 12:15 | RAD_ITS ---
PROCEDURE: CHEST PA AND LATERAL 12/05/2024 REASON FOR EXAM: R/O CHF EDEMA TECHNIQUE: Procedure Code: RADCXR Modality: DX Procedure: CHEST PA AND LATERAL COMPARISON: None. RAD/Chest PA and Lateral IMPRESSION: Lungs are hyperinflated with chronic increased interstitial markings, most prom inent in the lower lung zones. No pulmonary edema is clearly appreciated. No focal infiltrate is seen. No pleural effusion or pneumothorax is evident. The cardiomediastinal silhouette is within the normal range for age. Cpxp-oj-xasfvrlt degenerative changes of the spine are seen. Reading Location: [place] [address]
== END | disposition home or self-care (01) ==
PROVIDERS: PCP Nurse Practitioner Family; Referring Provider Nurse Practitioner Family; Visit Provider Nurse Practitioner Family
DX: R16.0 Hepatomegaly, not elsewhere classified (principal); R60.0 Localized edema
CPT/HCPCS: 71046